=== PATIENT | female | born 1955 | race African-American/Black ===

== ENCOUNTER 2018-06-27 15:45 | Inpatient (IN) | payer MEDICARE ==
[~2018-06-27 15:45] MED LIST: ISOVUE-370 76%-LOCM 1 ML ONE
[2018-06-27] MEDS ORDERED: Docusate 100 MG CAP PO PRN (16:58)
[2018-06-27] MEDS ORDERED: Ondansetron PF 4 MG/2 ML Vial IVP PRN (16:58)
[2018-06-27] MEDS ORDERED: CCU Electrolyte Replacement 1 EACH IVPB ONE (16:58)
[2018-06-27] MEDS ORDERED: HumaLOG 300 UNITS/3 ML VIAL SC PRN (16:58)
--- NOTE | 2018-06-27 17:26 | CT ---
CONTRAST ENHANCED CTA BRAIN 06/27/18 HISTORY: Patient with hypertension, incidentally noted subdural hematoma, headache. Contrast enhanced CTA brain performed. 2D and 3D reconstructed images performed on an independent 3D workstation. Comparison made to a noncontrast enhanced CT brain from earlier in the day on 06/27/18. Again, the subdural hematoma is seen. Midline shift is unchanged measuring approximately 5.4 mm. No i ncreasing amounts of hemorrhage seen. CTA images brain with 2D and 3D reconstructed images demonstrate an incidentally noted 2.7 mm anterio r communicating artery aneurysm. No definite evidence of associated subarachnoid hemorrhage seen. IMPRESSION: 1. Stable subdural hematoma. 2. 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 Findings called to [facility]IG[facility] for neurosurgery at 5:16 p.m. on 06/27/18. In addition, call was al so made to Dr. Martinez at 5:09 p.m. on 06/27/18. Code CR POS: [facility]
[2018-06-27] MEDS ORDERED: Potassium Chloride 40 MEQ in Sodium Chloride 0.9% 250 ML 250 ML IVPB PRN (17:56)
[2018-06-27] MEDS ORDERED: Potassium Phosphate 12 MMOL in Sodium Chloride 0.9% 250 ML 250 ML IV PRN (17:56)
[2018-06-27] MEDS ORDERED: Potassium Chloride 40 MEQ in Premix Bag 1 BAG IVPB PRN (17:56)
[2018-06-27] MEDS ORDERED: Magnesium 2 GM/50 ML 2 GM in Premix Bag 1 BAG IVPB PRN (17:56)
[2018-06-27] MEDS ORDERED: Magnesium Oxide 400 MG TAB PO PRN ×2 (17:56)
[2018-06-27] MEDS ORDERED: Potassium Phosphate 15 MMOL in Sodium Chloride 0.9% 250 ML 250 ML IV PRN (17:56)
[2018-06-27] MEDS ORDERED: Potassium Chloride 20 MEQ TAB PO PRN (17:56)
[2018-06-27] MEDS ORDERED: CCU ELECTROLYTE REPLACEMENT PROTOCOL FS PRN (17:56)
[2018-06-27] MEDS ORDERED: Potassium Phosphate 9 MMOL in Sodium Chloride 0.9% 100 ML IVPB PRN (17:56)
--- NOTE | 2018-06-27 17:59 | HP ---
HISTORY OF PRESENT ILLNESS: Ms. Small is a very pleasant 62-year-old woman, who was in her normal state of health 72 hours ago and then developed what she describes as one of the most severe headaches that she has had in her life, that resolved on its own without treatment, and then again this morning, she woke up with somewhat significant headache, that resolved again. She has a history of sinus problems and felt that she was likely related to this and went to [facility] to sisal picker some medications to help treat her symptoms. While she was there, she figured she would check her blood pressure at the health machine located in the pharmacy and found that her blood pressure was roughly 230/140, which prompted her to come to the emergency department in [place]. CT scan was performed, which showed a right-sided subdural hematoma of subacute nature spanning the entire right cerebral convexity with mass effect measuring roughly 4.5 mm of midline shift, right to left. She denies any history of trauma. Denies any blood thinners other than 325 mg aspirin daily, which she states she takes as a preventive measure for cardiac events, but she has no history of these. She does have a history of hypertension and takes three medications for such. She is also diabetic. She states that she has no headache at present and otherwise feels well. Her systolic pressures here in the department are at 155/68, which I think could actually be a little lower for the purposes of controlling any continued bleeding. PAST MEDICAL HISTORY: Significant for hypertension, anxiety, diabetes, and hyperlipidemia. CURRENT MEDICATIONS: 1. Aspirin. 2. Hydralazine. 3. Xanax. 4. Metformin. 5. Metoprolol. 6. Amlodipine. 7. Pravastatin. 8. Losartan. PAST SURGICAL HISTORY: Chest abscess, appendectomy, and hysterectomy. ALLERGIES: NO KNOWN DRUG ALLERGIES. PHYSICAL EXAMINATION: GENERAL: The patient is alert and oriented x4. HEENT: Pupils are equal, round, and reactive to light. Extraocular movements are intact. Head is atraumatic and normocephalic. NEUROLOGIC: She has no deficits on motor examination of the bilateral upper and bilateral lower extremities. There is no numbness or sensory disturbance that I can discern at any location. ASSESSMENT: Subacute subdural hematoma and hypertensive emergency. PLAN: At this time, we will need to obtain a CTA in the emergency department to better evaluate any possible causes for her bleed as this is rather atypical for subdural hematoma. We will hold all blood thinning medications and admitted to the ICU with every one hour neuro checks. Plan will likely be nonsurgical as long as her exam remains normal. We will obtain a repeat CT scan this evening at 10 o'clock to evaluate any evolution of the hemorrhage. Target blood pressure will be 140 or less. I have discussed this plan with Dr. Benson and we will re-evaluate in the morning. Job ID: [id number]
[2018-06-27] MEDS: Sodium Chloride 0.9% 1,000 ML IV SCH (20:17)
[2018-06-27 20:31] VITALS: BMI 23.9
[2018-06-27] MEDS: Labetalol HCl 100 MG/20 ML VIAL SLOW IVP PRN (20:44)
--- NOTE | 2018-06-27 23:01 | CT ---
CT BRAIN 06/27/18 Comparison made to a previous exam from earlier in the day on 06/27/18. CT images of the brain demonstrates extensive subdural hematoma seen in the right and parafalcine reg ions. Smaller left frontal subdural hematoma is also present. Bilateral peritentorial subdural hemato ma is also present. Midline shift is not significantly changed since the previous exam. The extent of the subdural hemorrhage has not significantly changed. Mild right to left midline shift is again see n. This measures approximately 3.6 mm. IMPRESSION: Stable right sided and smaller left subdural hematoma with parafalcine and peritentorial subdural co llection is also seen. POS: [facility]
[2018-06-28] MEDS: hydrALAZINE 20 MG/ML VIAL SLOW IVP PRN ×5 (00:27→22:28)
[2018-06-28] MEDS ORDERED: niCARdipine HCl 25 MG in Sodium Chloride 0.9% 250 ML 240 ML IVPB SCH (00:30)
[2018-06-28] MEDS: Acetaminophen 325 MG TAB PO PRN ×2 (00:32→07:36)
[2018-06-28 05:19] LABS: #Basophils 0.1 thou/uL (0.0-0.2); #Eosinphils 0.1 thou/uL (0.0-0.7); #Monocytes 0.5 thou/uL (0.11-0.59); #Neutrophils 3.3 thou/uL (1.40-6.50); %Basophils 1.1 % (0.0-1.0); %Eosinophils 1.7 % (0.0-10.0); %Lymphocytes 33.1 % (21.0-51.0); %Monocytes 8.1 % (0.0-10.0); %Neutrophils 56.1 % (42.0-75.0); Hemoglobin 11.7 g/dL (12.0-16.0); Mean Corpuscular HGB CONC 32.8 g/dL (32.0-36.0); Mean Corpuscular Hemoglobin 31.1 pg (27.0-31.0); Mean Platelet Volume 8.4 fL (7.4-10.4); Platelet Count 231 thou/uL (130-400); RBC Distribution Width 14.1 % (11.5-14.5); Red Blood Cell (RBC) Count 3.77 mill/uL (4.20-5.40); White Blood Cell (WBC) Count 5.9 thou/uL (4.8-10.8)
[2018-06-28 05:25] LABS: Anion Gap 10 mmol/L (10-20); BUN (Urea Nitrogen) 13 mg/dL (9.8-20.1); Calc. Creatinine Clearance 62 mL/min (70-130); Calcium 9.3 mg/dL (7.8-10.44); Carbon Dioxide 27 mmol/L (23-31); Chloride 109 mmol/L (98-107); Estimated GFR-MDRD 69; Glucose 90 mg/dL (80-115); Potassium 3.8 mmol/L (3.5-5.1); Sodium 142 mmol/L (136-145)
[2018-06-28] MEDS: Labetalol HCl 100 MG/20 ML VIAL SLOW IVP PRN (06:04)
[2018-06-28] MEDS: Amlodipine 10 MG TAB PO SCH (07:36)
[2018-06-28] MEDS: metFORMIN 500 MG TAB PO SCH ×2 (08:37→17:39)
[2018-06-28] MEDS ORDERED: Losartan 25 MG TAB PO SCH ×2 (09:00→12:45)
[2018-06-28] MEDS ORDERED: hydrALAZINE 25 MG TAB PO SCH ×2 (09:00→12:45)
--- NOTE | 2018-06-28 10:03 | PRG ---
DATE OF SERVICE: 06/28/2018 SUBJECTIVE: Ms. Small is admitted last night for subdural hematoma. Repeat CT scan revealed a stable subdural hematoma with a stable midline shift to the right cerebral convexity and shift is [id number]. Neurologically, she is stable. She does have a minor headache this morning, but overall is very well appearing. She is anxious to get home. I will discuss with Dr. Benson about plan and minimally can transfer her to the floor, see how she mobilizes, and if doing well, can possibly send home earlier this afternoon. Still do not have reasonable explanation for how this hemorrhage occurred, but will follow likely in 2 to 3 weeks in the outpatient setting if she is able to be discharged home. I did discuss with her the finding of incidental aneurysm of anterior communicating artery measuring 3 mm. Again, I do not think that this is impactful in terms of hemorrhage. Job ID: [id number]
--- NOTE | 2018-06-28 10:44 | PDOC.PN ---
- Subjective Encounter Start Date: 06/28/18 Encounter Start Time: 09:40 consulted to BP management, pt has not complaints, she has no headache - Objective MAR Reviewed: Yes Vital Signs & Weight: Vital Signs (12 hours) Temp Pulse BP 06/28/18 07:00 98.6 F 06/28/18 06:04 69 162/87 H 06/28/18 05:07 74 158/77 H 06/28/18 05:00 98.5 F 06/28/18 00:27 74 179/86 H 06/28/18 00:00 97.8 F Weight Weight 154 lb 8.705 oz Most Recent Monitor Data Heart Rate from ECG 78 NIBP 150/72 NIBP BP-Mean 98 Respiration from ECG 21 SpO2 98 I&O: 06/27/18 06/28/18 06/29/18 06:59 06:59 06:59 Intake Total 1060 960 Output Total 1200 Balance -140 960 Result Diagrams: 06/28/18 04:10 06/28/18 04:10 Additional Labs: Accuchecks 06/27/18 19:56 POC Glucose 120 H Radiology Reviewed by me: Yes (CT brain reviewed) EKG Reviewed by me: Yes (NSR) Phys Exam - Physical Examination Constitutional: NAD HEENT: PERRLA, moist MMs, sclera anicteric Neck: no JVD, supple she has chronic lump in her right side of sbumandibular region Respiratory: no wheezing, no rales, no rhonchi Cardiovascular: RRR, no significant murmur, no rub Gastrointestinal: soft, non-tender, no distention, positive bowel sounds Musculoskeletal: no edema, pulses present Neurological: non-focal, normal sensation, moves all 4 limbs Lymphatic: no nodes Psychiatric: normal affect, A&O x 3 Skin: no rash, normal turgor Dx/Plan (1) Subdural hematoma Code(s): S06.5X9A - TRAUM SUBDR HEM W LOC OF UNSP DURATION, INIT Status: Acute (2) Anemia, normocytic normochromic Code(s): D64.9 - ANEMIA, UNSPECIFIED Status: Chronic (3) Anxiety and depression Code(s): F41.9 - ANXIETY DISORDER, UNSPECIFIED; F32.9 - MAJOR DEPRESSIVE DISORDER, SINGLE EPISODE, UNSPECIFIED Status: Chronic (4) Diabetes type 2, controlled Code(s): E11.9 - TYPE 2 DIABETES MELLITUS WITHOUT COMPLICATIONS Status: Chronic (5) Dyslipidemia Code(s): E78.5 - HYPERLIPIDEMIA, UNSPECIFIED Status: Chronic (6) Hypertension Code(s): I10 - ESSENTIAL (PRIMARY) HYPERTENSION Status: Chronic (7) Aneurysm of anterior communicating artery Code(s): I67.1 - CEREBRAL ANEURYSM, NONRUPTURED Status: Chronic - Plan cont current plan of care * for better blood pressure control, I will increase her home meds losartan to 50 mg po daily * will add HCTZ 25 mg po daily * continue her home meds amlodipine 10 mg and hydralazin 25 mg po TID * if pt is planned for discharge she needs to follow up with PCP for more adjustment * discharge will defer to primary team, pt prefers to go home * medication reviewed as below * symptomatic treatment. * if pt stays, will continue to manage her BP Review of Systems - Review of Systems Eyes: negative: Pain, Vision Change, Conjunctivae Inflammation, Eyelid Inflammation, Redness, Other ENT: negative: Ear Pain, Ear Discharge, Nose Pain, Nose Discharge, Nose Congestion, Mouth Pain, Mouth Swelling, Throat Pain, Throat Swelling, Other Respiratory: negative: Cough, Dry, Shortness of Breath, Hemoptysis, SOB with Excertion, Pleuritic Pain, Sputum, Wheezing Cardiovascular: negative: chest pain, palpitations, orthopnea, paroxysmal nocturnal dyspnea, edema, light headedness, other Gastrointestinal: negative: Nausea, Vomiting, Abdominal Pain, Diarrhea, Constipation, Melena, Hematochezia, Other Genitourinary: negative: Dysuria, Frequency, Incontinence, Hematuria, Retention , Other Musculoskeletal: negative: Neck Pain, Shoulder Pain, Arm Pain, Back Pain, Hand Pain, Leg Pain, Foot Pain, Other Skin: negative: Rash, Lesions, Everett, Bruising, Other Neurological: negative: Weakness, Numbness, Incoordination, Change in Speech, Confusion, Seizures, Other - Medications/Allergies Allergies/Adverse Reactions: Allergies Allergy/AdvReac Type Severity Reaction Status Date / Time No Known Allergies Allergy Verified 12/03/14 17:19 Medications: Current Medications Acetaminophen (Tylenol) 650 mg PO Q6H PRN PRN Reason: Fever > 101 or Headache Last Admin: 06/28/18 07:36 Dose: 650 mg Amlodipine Besylate (Norvasc) 10 mg PO DAILY [facility] Last Admin: 06/28/18 07:36 Dose: 10 mg Atorvastatin Calcium (Lipitor) 10 mg PO HS DARSHAN Docusate Sodium (Colace) 100 mg PO BIDPRN PRN PRN Reason: Constipation Hydralazine HCl (Apresoline) 10 mg SLOW IVP Q1H PRN PRN Reason: SBP >= 180 Last Admin: 06/28/18 05:07 Dose: 10 mg Hydralazine HCl (Apresoline) 25 mg PO TID [facility] Last Admin: 06/28/18 07:36 Dose: 25 mg Sodium Chloride (Normal Saline 0.9%) 1,000 mls @ 70 mls/hr IV .[id number] PENDING [facility] TO [facility] Last Admin: 06/27/18 20:17 Dose: 1,000 mls Potassium Chloride 40 meq/ (Sodium Chloride) 270 mls @ 135 mls/hr IVPB ASDIR PRN PRN Reason: FOR SERUM K+ 2.5 - 3.5 Potassium Chloride 40 meq/ (Device) 100 mls @ 50 mls/hr IVPB ASDIR PRN PRN Reason: FOR SERUM K+ 2.5 - 3.5 Magnesium Sulfate 1 gm/ Sodium (Chloride) 102 mls @ 102 mls/hr IV PRN PRN PRN Reason: MAG LEVEL 1.4 - 2.0 Magnesium Sulfate 2 gm/ Device 50 mls @ 50 mls/hr IVPB ASDIR PRN PRN Reason: MAGNESIUM < 1.4 Potassium Phosphate 9 mmol/ (Sodium Chloride) 103 mls @ 25.75 mls/hr IVPB ASDIR PRN PRN Reason: Phosphate 1.0-1.8 Potassium Phosphate 12 mmol/ (Sodium Chloride) 254 mls @ 63.5 mls/hr IV ASDIR PRN PRN Reason: Serum phosphate 0.5-0.9 Potassium Phosphate 15 mmol/ (Sodium Chloride) 255 mls @ 63.75 mls/hr IV ASDIR PRN PRN Reason: Serum Phos < 0.5 Nicardipine HCl 25 mg/ Sodium (Chloride) 250 mls @ 0 mls/hr IVPB INF DARSHAN; Protocol Insulin Human Lispro (Humalog) 0 units SC .MODERATE SLIDING SC PRN PRN Reason: Moderate Correctional Scale Labetalol HCl (Normodyne) 10 mg SLOW IVP Q4H PRN PRN Reason: SBP > 140 or DBP > 90 Last Admin: 06/28/18 06:04 Dose: 10 mg Losartan Potassium (Cozaar) 25 mg PO DAILY [facility] Last Admin: 06/28/18 07:36 Dose: 25 mg Magnesium Oxide (Magnesium Oxide) 400 mg PO BIDPRN PRN PRN Reason: FOR SERUM MAG 1.4 - 2.0 Magnesium Oxide (Magnesium Oxide) 800 mg PO PRN PRN PRN Reason: FOR SERUM MAG < 1.4 Metformin HCl (Glucophage) 1,000 mg PO BID-WM PEND[facility] Last Admin: 06/28/18 08:37 Dose: 1,000 mg Metoprolol Succinate (Toprol Xl) 50 mg PO DAILY [facility] Last Admin: 06/28/18 07:36 Dose: 50 mg Miscellaneous Medication (Phos-Nak) 1 pkt PO TIDPRN PRN PRN Reason: FOR PHOS LEVEL 1.0 - 1.8 Miscellaneous Medication (Phos-Nak) 2 pkt PO TIDPRN PRN PRN Reason: FOR PHOS LEVEL 0.5 - 1.0 Ccu Electrolyte (Replacement Protocol) 0 each FS PRN PRN PRN Reason: FOR ELECTROLYTE REPLACEMENT Ondansetron HCl (Zofran) 4 mg IVP Q6H PRN PRN Reason: Nausea/Vomiting Potassium Chloride (K-Dur) 40 meq PO ASDIR PRN PRN Reason: FOR SERUM K+ 2.5 - 3.5 Potassium Chloride (Klor-Con) 40 meq PER TUBE ASDIR PRN PRN Reason: FOR SERUM K+ 2.5-3.5 Sodium Chloride (Flush - Normal Saline) 10 ml IVF PRN PRN PRN Reason: Saline Flush History of Present Illnes - History of Present Illness Reason for Visit: admitted for subdural hematoma, consulted for hypertension management - Past Medical History Cardiac: HTN, Hyperlipidemia Endocrine: Diabetes - Past Surgical History Past Surgical History: Appendectomy - Past Family History Family History: None - Past Social History Smoke: No Alcohol: None Drugs: None Lives: With Family
[2018-06-28] MEDS ORDERED: hydrALAZINE 20 MG/ML VIAL SLOW IVP SCH (12:45)
[2018-06-28] MEDS: Sodium Chloride 0.9% 1,000 ML IV SCH (13:36)
[2018-06-28] MEDS: hydrALAZINE 25 MG TAB PO SCH ×2 (15:37→20:27)
[2018-06-28] MEDS: Atorvastatin Calcium 10 MG TAB PO SCH (20:27)
--- NOTE | 2018-06-29 00:07 | CON ---
DATE OF CONSULTATION: 06/28/2018 HISTORY OF PRESENT ILLNESS: Geovanny is a pleasant 62-year-old female, very quickly tells me she wants to go home. She actually does not look acutely ill. She is seen in the Critical Care Unit. Apparently, she presented with a horrible headache. She was extremely hypertensive, came to the emergency room. She had a right- sided subdural that was subacute. She did have midline shift. She subsequently was admitted. PAST MEDICAL HISTORY: Remarkable for hypertension, diabetes, anxiety, and lipid disorder. MEDICATIONS: Prior to admission, 1. She is on aspirin. 2. Hydralazine. 3. Xanax. 4. Metformin. 5. Metoprolol. 6. Norvasc. 7. Pravastatin. 8. Losartan. PAST SURGICAL HISTORY: Remarkable for appendectomy, hysterectomy. She had an admission here in 2014 for chest discomfort and coronary artery disease was ruled out. FAMILY HISTORY: Negative for lung disease in early age. SOCIAL HISTORY: Not obtained. REVIEW OF SYSTEMS: A 10-point review of systems completed, otherwise negative. PHYSICAL EXAMINATION: GENERAL: She is in absolutely no distress. VITAL SIGNS: She is afebrile, heart rate is in 60s, respiratory rate is 20, blood pressure is 178/68. She is 99% on room air. HEENT: Pupils are equal. Sclerae are anicteric. Extraocular movements are full. NECK: Supple. LUNGS: Clear. HEART: Regular rhythm. S1 and S2 are normal. ABDOMEN: Soft and nontender. EXTREMITIES: Without clubbing, cyanosis, or edema. IMPRESSION: Subdural hematoma, subacute. This will continue to be followed closely by Neurosurgery. She does have an anterior communicating artery aneurysm, but this is not felt to be the cause of the hemorrhage. She will need to continue to be monitored from a blood pressure standpoint. She is in my opinion stable to move out of critical care unit. This is a 70 minute consult, with greater than 50% of time spent on unit coordinating care. Job ID: [id number] MTDD
[2018-06-29] MEDS: hydrALAZINE 20 MG/ML VIAL SLOW IVP PRN ×3 (03:04→17:39)
[2018-06-29] MEDS ORDERED: Carvedilol 6.25 MG TAB PO SCH (08:00)
[2018-06-29] MEDS: metFORMIN 500 MG TAB PO SCH ×2 (08:19→16:32)
[2018-06-29] MEDS: Hydrochlorothiazide 25 MG TAB PO SCH (08:20)
[2018-06-29] MEDS: Amlodipine 10 MG TAB PO SCH (08:20)
[2018-06-29] MEDS: Losartan 25 MG TAB PO SCH (08:20)
[2018-06-29] MEDS: hydrALAZINE 25 MG TAB PO SCH ×3 (08:20→22:06)
[2018-06-29] MEDS ORDERED: Bisacodyl 5 MG TAB PO PRN (09:00)
[2018-06-29] MEDS ORDERED: Loperamide HCl 2 MG CAP PO PRN (09:00)
[2018-06-29] MEDS ORDERED: Cepastat Lozenges 1 LOZ PO PRN (09:00)
[2018-06-29] MEDS ORDERED: Eucerin (Mineral Oil/Petrolatum,White) 30 gm Jar TOP PRN (09:00)
[2018-06-29] MEDS ORDERED: Ondansetron ODT 4 MG TAB PO PRN (09:00)
[2018-06-29] MEDS ORDERED: Diabetic Tussin 200 MG/10 ML UDCUP PO PRN (09:00)
[2018-06-29] MEDS ORDERED: Zolpidem Tartrate 5 MG TAB PO PRN (09:00)
[2018-06-29] MEDS ORDERED: Senokot S 8.6-50 MG TAB PO PRN (09:00)
[2018-06-29] MEDS ORDERED: Artificial Tears 18 DROP/0.9 ML EA EYE PRN (09:00)
[2018-06-29] MEDS ORDERED: Sodium Chloride 0.65% Nasal 44 ML BOT EA NARE PRN (09:00)
[2018-06-29] MEDS: Loratadine 10 MG TAB PO PRN (09:30)
--- NOTE | 2018-06-29 09:55 | PDOC.PN ---
- Subjective Encounter Start Date: 06/29/18 Encounter Start Time: 09:00 -: old records requested/rev pt had transient CHB on tele monitor, pt is asymptomatic, her BP still high - Objective MAR Reviewed: Yes Vital Signs & Weight: Vital Signs (12 hours) Temp Pulse Resp BP BP Pulse Ox 06/29/18 08:20 67 148/72 H 100 06/29/18 08:19 148/72 H 06/29/18 07:52 98 F 67 20 148/72 H 100 06/29/18 05:36 176/80 H 06/29/18 04:00 98 F 84 16 100 06/29/18 03:04 78 06/29/18 03:03 170/86 H 06/29/18 00:53 78 168/74 H 06/29/18 00:00 98.1 F 84 16 185/81 H 97 06/28/18 22:38 76 188/90 H Weight Weight 144 lb Most Recent Monitor Data Heart Rate from ECG 86 NIBP 173/99 NIBP BP-Mean 123 Respiration from ECG 16 SpO2 100 I&O: 06/28/18 06/29/18 06/30/18 06:59 06:59 06:59 Intake Total 1060 1656 Output Total 1200 1000 Balance -140 656 Result Diagrams: 06/28/18 04:10 06/28/18 04:10 Additional Labs: Accuchecks 06/29/18 06/28/18 06/28/18 05:18 21:02 16:51 POC Glucose 96 98 91 06/28/18 11:32 POC Glucose 84 EKG Reviewed by me: Yes (transient CHB noted) Phys Exam - Physical Examination Constitutional: NAD HEENT: PERRLA, moist MMs, sclera anicteric Neck: no JVD, supple Respiratory: no wheezing, no rales, no rhonchi Cardiovascular: RRR, no significant murmur, no rub Gastrointestinal: soft, non-tender, no distention, positive bowel sounds Musculoskeletal: no edema, pulses present Neurological: non-focal, normal sensation, moves all 4 limbs Lymphatic: no nodes Psychiatric: normal affect, A&O x 3 Skin: no rash, normal turgor Dx/Plan (1) Subdural hematoma Code(s): S06.5X9A - TRAUM SUBDR HEM W LOC OF UNSP DURATION, INIT Status: Acute (2) Anemia, normocytic normochromic Code(s): D64.9 - ANEMIA, UNSPECIFIED Status: Chronic (3) Anxiety and depression Code(s): F41.9 - ANXIETY DISORDER, UNSPECIFIED; F32.9 - MAJOR DEPRESSIVE DISORDER, SINGLE EPISODE, UNSPECIFIED Status: Chronic (4) Diabetes type 2, controlled Code(s): E11.9 - TYPE 2 DIABETES MELLITUS WITHOUT COMPLICATIONS Status: Chronic (5) Dyslipidemia Code(s): E78.5 - HYPERLIPIDEMIA, UNSPECIFIED Status: Chronic (6) Hypertension Code(s): I10 - ESSENTIAL (PRIMARY) HYPERTENSION Status: Chronic (7) Aneurysm of anterior communicating artery Code(s): I67.1 - CEREBRAL ANEURYSM, NONRUPTURED Status: Chronic (8) CHB (complete heart block) Code(s): I44.2 - ATRIOVENTRICULAR BLOCK, COMPLETE Status: Acute Comment: transient, asymptomatic, may be due to BB - Plan cont current plan of care * will add HCTZ 25 mg po daily * will DC all BB due to episode of transient CHB * will get opinion from cardiology * medication reviewed as below * symptomatic treatment * monitor today. * currently on hydralalzine, amlodipine, HCTZ and losartan Review of Systems - Review of Systems ENT: negative: Ear Pain, Ear Discharge, Nose Pain, Nose Discharge, Nose Congestion, Mouth Pain, Mouth Swelling, Throat Pain, Throat Swelling, Other Respiratory: negative: Cough, Dry, Shortness of Breath, Hemoptysis, SOB with Excertion, Pleuritic Pain, Sputum, Wheezing Cardiovascular: negative: chest pain, palpitations, orthopnea, paroxysmal nocturnal dyspnea, edema, light headedness, other Gastrointestinal: negative: Nausea, Vomiting, Abdominal Pain, Diarrhea, Constipation, Melena, Hematochezia, Other Genitourinary: negative: Dysuria, Frequency, Incontinence, Hematuria, Retention , Other Musculoskeletal: negative: Neck Pain, Shoulder Pain, Arm Pain, Back Pain, Hand Pain, Leg Pain, Foot Pain, Other Skin: negative: Rash, Lesions, Everett, Bruising, Other - Medications/Allergies Allergies/Adverse Reactions: Allergies Allergy/AdvReac Type Severity Reaction Status Date / Time No Known Allergies Allergy Verified 12/03/14 17:19 Medications: Current Medications Acetaminophen (Tylenol) 650 mg PO Q6H PRN PRN Reason: Fever > 101 or Headache Last Admin: 06/28/18 07:36 Dose: 650 mg Hydrocodone Bitart/Acetaminophen (Chester 5/325) 1 tab PO Q4H PRN PRN Reason: Moderate Pain (4-6) Amlodipine Besylate (Norvasc) 10 mg PO DAILY [facility] Last Admin: 06/29/18 08:20 Dose: 10 mg Artificial Tears (Tears Naturale) 2 drop EA EYE PRN PRN PRN Reason: Dry Eyes Atorvastatin Calcium (Lipitor) 10 mg PO [facility] Last Admin: 06/28/18 20:27 Dose: 10 mg Bisacodyl (Dulcolax) 10 mg PO DAILYPRN PRN PRN Reason: Constipation Docusate Sodium (Colace) 100 mg PO BIDPRN PRN PRN Reason: Constipation Fluticasone Propionate (Flonase Nasal Elmer) 0 gm NASAL DAILY [facility] Last Admin: 06/29/18 09:31 Dose: 2 spray Guaifenesin (Robitussin Sf) 200 mg PO Q4H PRN PRN Reason: Cough Hydralazine HCl (Apresoline) 50 mg PO TID [facility] Last Admin: 06/29/18 08:20 Dose: 50 mg Hydralazine HCl (Apresoline) 10 mg SLOW IVP Q2H PRN PRN Reason: SBP GREATER THAN 160 Hydrochlorothiazide (Hydrochlorothiazide) 25 mg PO DAILY [facility] Last Admin: 06/29/18 08:20 Dose: 25 mg Insulin Human Lispro (Humalog) 0 units SC .MODERATE SLIDING SC PRN PRN Reason: Moderate Correctional Scale Loperamide HCl (Imodium) 2 mg PO PRN PRN PRN Reason: Diarrhea/Loose Stools Loratadine (Claritin) 10 mg PO DAILYPRN PRN PRN Reason: Sinus Symptoms Last Admin: 06/29/18 09:30 Dose: 10 mg Losartan Potassium (Cozaar) 50 mg PO DAILY [facility] Last Admin: 06/29/18 08:20 Dose: 50 mg Metformin HCl (Glucophage) 1,000 mg PO BID-[facility] Last Admin: 06/29/18 08:19 Dose: 1,000 mg Mineral Oil/White Petrolatum (Eucerin Cream) 0 gm TOP BIDPRN PRN PRN Reason: Dry Skin Ondansetron HCl (Zofran) 4 mg IVP Q6H PRN PRN Reason: Nausea/Vomiting Ondansetron HCl (Zofran Odt) 4 mg PO Q6H PRN PRN Reason: Nausea/Vomiting Senna/Docusate Sodium (Senokot S) 2 tab PO BID PRN PRN Reason: Constipation Sodium Chloride (Flush - Normal Saline) 10 ml IVF PRN PRN PRN Reason: Saline Flush Sodium Chloride (Hector Nasal Elmer 0.65%) 0 ml EA NARE QIDPRN PRN PRN Reason: Nasal Congestion Throat Lozenges (Cepastat Lozenges) 1 anthony PO Q2H PRN PRN Reason: Sore Throat Zolpidem Tartrate (Ambien) 5 mg PO HSPRN PRN PRN Reason: Insomnia
--- NOTE | 2018-06-29 10:39 | PRG ---
DATE OF SERVICE: 06/28/2018 SUBJECTIVE: Ms. Small remains in the ICU with a right-sided cerebral convexity subdural hematoma with a mild degree of midline shift. She does report minor headache and has had one for the last several days. She is otherwise neurologically intact. She is quite eager to go home. We did perform a CT angiogram which shows small ACOM region aneurysm, which I do not believe is likely a culprit in her hemorrhage. We will transition her from the unit to the floor and start to mobilize her. She has had fairly substantial blood pressure lability issues. Our hospital's colleagues are working to address her blood pressure. We will relax her systolic parameters to 160. I do anticipate she will be able to discharge home soon once she has been mobilizing and once she has adequate blood pressure control. Job ID: [id number]
[2018-06-29] MEDS: Acetaminophen 325 MG TAB PO PRN (17:47)
[2018-06-29] MEDS: HYDROcodone/Acetaminophen 5/325 mg Tablet PO PRN (18:44)
[2018-06-29] MEDS: Atorvastatin Calcium 10 MG TAB PO SCH (22:07)
[2018-06-30] MEDS: hydrALAZINE 20 MG/ML VIAL SLOW IVP PRN (05:30)
[2018-06-30] MEDS: HYDROcodone/Acetaminophen 5/325 mg Tablet PO PRN (06:24)
[2018-06-30] MEDS: Losartan 25 MG TAB PO SCH (08:28)
[2018-06-30] MEDS: hydrALAZINE 25 MG TAB PO SCH ×2 (08:28→15:43)
[2018-06-30] MEDS: Hydrochlorothiazide 25 MG TAB PO SCH (08:28)
[2018-06-30] MEDS: Amlodipine 10 MG TAB PO SCH (08:29)
[2018-06-30] MEDS: metFORMIN 500 MG TAB PO SCH ×2 (08:29→17:12)
[2018-06-30] MEDS ORDERED: Fluticasone Propionate Nasal Spray 16 gm Bottle NASAL SCH (09:00)
--- NOTE | 2018-06-30 11:00 | PDOC.PN ---
- Subjective Encounter Start Date: 06/30/18 Encounter Start Time: 07:50 Patient seen and examined. No new complaints. No overnight events - Objective MAR Reviewed: Yes Vital Signs & Weight: Vital Signs (12 hours) Temp Pulse Resp BP BP Pulse Ox 06/30/18 08:29 57 L 152/78 H 06/30/18 08:28 57 L 152/78 H 06/30/18 08:18 152/78 H 06/30/18 07:51 98.2 F 57 L 16 99 06/30/18 05:00 180/76 H 06/30/18 04:56 98.2 F 61 16 98 06/30/18 00:55 155/78 H 06/29/18 23:44 98.3 F 70 16 97 Weight Weight 143 lb 1.6 oz Most Recent Monitor Data Heart Rate from ECG 86 NIBP 173/99 NIBP BP-Mean 123 Respiration from ECG 16 SpO2 100 I&O: 06/29/18 06/30/18 07/01/18 06:59 06:59 06:59 Intake Total 1656 Output Total 1000 Balance 656 Result Diagrams: 06/28/18 04:10 06/28/18 04:10 Additional Labs: Accuchecks 06/30/18 06/29/18 06/29/18 05:28 20:45 16:40 POC Glucose 100 126 H 111 H 06/29/18 10:39 POC Glucose 100 EKG Reviewed by me: Yes (nsr) Phys Exam - Physical Examination Constitutional: NAD HEENT: PERRLA, moist MMs, sclera anicteric Neck: no JVD, supple Respiratory: no wheezing, no rales, no rhonchi Cardiovascular: RRR, no significant murmur, no rub Gastrointestinal: soft, non-tender, no distention, positive bowel sounds Musculoskeletal: no edema, pulses present Neurological: non-focal, normal sensation Lymphatic: no nodes Psychiatric: normal affect, A&O x 3 Skin: no rash, normal turgor Dx/Plan (1) Subdural hematoma Code(s): S06.5X9A - TRAUM SUBDR HEM W LOC OF UNSP DURATION, INIT Status: Acute (2) Anemia, normocytic normochromic Code(s): D64.9 - ANEMIA, UNSPECIFIED Status: Chronic (3) Anxiety and depression Code(s): F41.9 - ANXIETY DISORDER, UNSPECIFIED; F32.9 - MAJOR DEPRESSIVE DISORDER, SINGLE EPISODE, UNSPECIFIED Status: Chronic (4) Diabetes type 2, controlled Code(s): E11.9 - TYPE 2 DIABETES MELLITUS WITHOUT COMPLICATIONS Status: Chronic (5) Dyslipidemia Code(s): E78.5 - HYPERLIPIDEMIA, UNSPECIFIED Status: Chronic (6) Hypertension Code(s): I10 - ESSENTIAL (PRIMARY) HYPERTENSION Status: Chronic (7) Aneurysm of anterior communicating artery Code(s): I67.1 - CEREBRAL ANEURYSM, NONRUPTURED Status: Chronic (8) CHB (complete heart block) Code(s): I44.2 - ATRIOVENTRICULAR BLOCK, COMPLETE Status: Acute Comment: transient, asymptomatic, may be due to BB - Plan cont current plan of care * echo pending * cardiology evaluated * her BP is now at target range, * consider discharge after cardiology recommendation if no further plan * medication reviewed as below * symptomatic treatment. Review of Systems - Review of Systems ENT: negative: Ear Pain, Ear Discharge, Nose Pain, Nose Discharge, Nose Congestion, Mouth Pain, Mouth Swelling, Throat Pain, Throat Swelling, Other Respiratory: negative: Cough, Dry, Shortness of Breath, Hemoptysis, SOB with Excertion, Pleuritic Pain, Sputum, Wheezing Cardiovascular: negative: chest pain, palpitations, orthopnea, paroxysmal nocturnal dyspnea, edema, light headedness, other Gastrointestinal: negative: Nausea, Vomiting, Abdominal Pain, Diarrhea, Constipation, Melena, Hematochezia, Other Genitourinary: negative: Dysuria, Frequency, Incontinence, Hematuria, Retention , Other Musculoskeletal: negative: Neck Pain, Shoulder Pain, Arm Pain, Back Pain, Hand Pain, Leg Pain, Foot Pain, Other - Medications/Allergies Allergies/Adverse Reactions: Allergies Allergy/AdvReac Type Severity Reaction Status Date / Time No Known Allergies Allergy Verified 12/03/14 17:19 Medications: Current Medications Acetaminophen (Tylenol) 650 mg PO Q6H PRN PRN Reason: Fever > 101 or Headache Last Admin: 06/29/18 17:47 Dose: 650 mg Hydrocodone Bitart/Acetaminophen ([place] 5/325) 1 tab PO Q4H PRN PRN Reason: Moderate Pain (4-6) Last Admin: 06/30/18 06:24 Dose: 1 tab Amlodipine Besylate (Norvasc) 10 mg PO DAILY DARSHAN Last Admin: 06/30/18 08:29 Dose: 10 mg Artificial Tears (Tears Naturale) 2 drop EA EYE PRN PRN PRN Reason: Dry Eyes Atorvastatin Calcium (Lipitor) 10 mg PO HS ON LICENSE OF [facility] Last Admin: 06/29/18 22:07 Dose: 10 mg Bisacodyl (Dulcolax) 10 mg PO DAILYPRN PRN PRN Reason: Constipation Docusate Sodium (Colace) 100 mg PO BIDPRN PRN PRN Reason: Constipation Fluticasone Propionate (Flonase Nasal [place]) 0 gm NASAL DAILY ON LICENSE OF [facility] Last Admin: 06/29/18 09:31 Dose: 2 spray Guaifenesin (Robitussin Sf) 200 mg PO Q4H PRN PRN Reason: Cough Hydralazine HCl (Apresoline) 50 mg PO TID ON LICENSE OF [facility] Last Admin: 06/30/18 08:28 Dose: 50 mg Hydralazine HCl (Apresoline) 10 mg SLOW IVP Q2H PRN PRN Reason: SBP GREATER THAN 160 Last Admin: 06/30/18 05:30 Dose: 10 mg Hydrochlorothiazide (Hydrochlorothiazide) 25 mg PO DAILY ON LICENSE OF [facility] Last Admin: 06/30/18 08:28 Dose: 25 mg Insulin Human Lispro (Humalog) 0 units SC .MODERATE SLIDING SC PRN PRN Reason: Moderate Correctional Scale Loperamide HCl (Imodium) 2 mg PO PRN PRN PRN Reason: Diarrhea/Loose Stools Loratadine (Claritin) 10 mg PO DAILYPRN PRN PRN Reason: Sinus Symptoms Last Admin: 06/29/18 09:30 Dose: 10 mg Losartan Potassium (Cozaar) 50 mg PO DAILY ON LICENSE OF [facility] Last Admin: 06/30/18 08:28 Dose: 50 mg Metformin HCl (Glucophage) 1,000 mg PO BID-[facility] Last Admin: 06/30/18 08:29 Dose: 1,000 mg Mineral Oil/White Petrolatum (Eucerin Cream) 0 gm TOP BIDPRN PRN PRN Reason: Dry Skin Ondansetron HCl (Zofran) 4 mg IVP Q6H PRN PRN Reason: Nausea/Vomiting Ondansetron HCl (Zofran Odt) 4 mg PO Q6H PRN PRN Reason: Nausea/Vomiting Senna/Docusate Sodium (Senokot S) 2 tab PO BID PRN PRN Reason: Constipation Sodium Chloride (Flush - Normal Saline) 10 ml IVF PRN PRN PRN Reason: Saline Flush Sodium Chloride ([place] Nasal [place] 0.65%) 0 ml EA NARE QIDPRN PRN PRN Reason: Nasal Congestion Throat Lozenges (Cepastat Lozenges) 1 anthony PO Q2H PRN PRN Reason: Sore Throat Zolpidem Tartrate (Ambien) 5 mg PO HSPRN PRN PRN Reason: Insomnia
--- NOTE | 2018-06-30 12:22 | CON ---
DATE OF CONSULTATION: HISTORY OF PRESENT ILLNESS: This is a 62-year-old woman, who presents for evaluation of headache and was noted to have a slow heart rate. The patient was seen in November 2014 with chest pain. She underwent a cardiac evaluation including a stress test. She was found to have a mild decrease of ejection fraction 47% with no evidence of ischemia. The patient also was noted during this hospitalization to have first degree AV block. The dose of her Toprol was reduced. The patient presented to the hospital with headaches. She was found to have a subdural hematoma. On property assessment monitor, she was noted to have intermittent heart block. The patient has no history of syncope. She does not report being lightheaded. The patient was on metoprolol before she came in the hospital. The patient denies having any chest discomfort. The patient has multiple cardiac risk factors including hypertension, diabetes, dyslipidemia, tobacco abuse, and a strong family history of coronary artery disease. PAST MEDICAL HISTORY: 1. Hypertension. 2. Diabetes mellitus. 3. Dyslipidemia. 4. Anxiety disorder. PAST SURGICAL HISTORY: She has had an appendectomy, hysterectomy, skin surgery. SOCIAL HISTORY: The patient continues to abuse tobacco. MEDICATIONS ON ADMISSION: Included: 1. Pravachol 40 q.h.s. 2. Hydralazine 25 t.i.d. 3. Metoprolol succinate 50 mg daily. 4. Metformin 1000 b.i.d. 5. Losartan 25 daily. 6. Norvasc 10 daily. ALLERGIES: NO KNOWN DRUG ALLERGIES. FAMILY HISTORY: Strong family history of heart disease. REVIEW OF SYSTEMS: Ten-point systems otherwise unremarkable. PHYSICAL EXAMINATION: GENERAL: This is a well-developed woman, in no acute distress. VITAL SIGNS: Blood pressure 172/82. NECK: Showed no jugular venous distention. LUNGS: Clear to auscultation. HEART: Regular rate and rhythm. Normal S1 and S2 with a 2/6 systolic murmur. ABDOMEN: Nondistended. EXTREMITIES: Show no edema. VASCULAR: Radial pulses are 2+. LABORATORY RESULTS: White blood count 5.9, hemoglobin 11.7, hematocrit 35.8, platelets 231. Her sodium was 142, potassium 3.8, chloride 109, bicarb 27, BUN 13, creatinine is 0.98. Telemetry monitoring revealed normal sinus rhythm with a third-degree AV block and a junctional escape beat. IMPRESSION: 1. Heart block with ventricular escape beat. 2. Subdural hematoma. 3. History of mild decrease in left ventricular systolic function. 4. Hypertension. 5. Diabetes mellitus. 6. Dyslipidemia. 7. Tobacco abuse. PLAN: This patient had intermittent heart block with a junctional escape beat. She has been on Toprol, which she last received 2 days ago. This medication will be held and echocardiogram will be obtained. We will monitor the patient to see if she develops further evidence of heart block. Job ID: [id number]
--- NOTE | 2018-06-30 13:08 | PQF ---
CLINICAL DOCUMENTATION IMPROVEMENT CLARIFICATION FORM: ICD-10 Updated PLEASE DO AN ADDENDUM TO THE PROGRESS NOTE WITH ANY DOCUMENTATION UPDATES OR ADDITIONS AND CARRY THROUGH TO DC SUMMARY. THANK YOU. DATE: 06/30/18 ATTN : NIGEL MOORE Please exercise your independent, professional judgment in responding to the clarification form. Clinical indicators are provided on the bottom of this form for your review Please check appropriate box(s): [ ] Cerebral edema / Vasogenic edema [ x ] Compression of brain [ ] Other diagnosis [ ] Unable to determine In addition, please specify: Present on Admission (POA): [ x ] Yes [ ] No [ ] Unable to determine For continuity of documentation, please document condition throughout progress notes and discharge summary. Thank You. CLINICAL INDICATORS - SIGNS / SYMPTOMS / LABS HEAD CT REPORT: "MIDLINE SHIFT IS UNCHANGED MEASURING APPROXIMATELY 5.4MM." H&P: "CT SCAN WAS PERFORMED, WHICH SHOWED A RIGHT-SIDED SUBDURAL HEMATOMA OF SUBACUTE NATURE SPANNING THE ENTIRE RIGHT CEREBRAL CONVEXITY WITH MASS EFFECT MEASURING ROUGHLY 4.5MM OF MIDLINE SHIFT, RIGHT TO LEFT." RISKS: HYPERTENSION SUBDURAL HEMATOMA TREATMENT: MONITORING ON CRITICAL CARE AND STROKE UNIT NEUROSURGERY CONSULT BRAIN CT APRESOLINE PO AND IV (06/28-PRESENT) NORVASC (06/28-PRESENT) COZAAR (06/29-PRESENT) (This form is maintained as a part of the permanent medical record) [employer] 2014 [employer]. All Rights Reserved DOUGLAS [email or web address] Office: [phone] [facility]
[2018-06-30 15:40] VITALS: BP 152/78
[2018-06-30 15:43] VITALS: TEMP 98.9
[2018-06-30] MEDS: Loratadine 10 MG TAB PO PRN (15:43)
--- NOTE | 2018-06-30 17:28 | PDOC.CTH ---
Cardiology Progress Note - Subjective Pt. seen and eval. by me. No c/o's.No new events. - Objective Vital Signs Temp Pulse Resp BP BP BP Pulse Ox 06/30/18 15:43 66 152/78 H 06/30/18 15:42 98.9 F 66 16 100 06/30/18 15:40 152/78 H 06/30/18 12:15 138/74 06/30/18 12:00 97.7 F 75 16 99 06/30/18 08:29 57 L 152/78 H 06/30/18 08:28 57 L 152/78 H 06/30/18 08:20 97 06/30/18 08:18 152/78 H 06/30/18 07:51 98.2 F 57 L 16 99 Weight 143 lb 1.6 oz 06/29/18 06/30/18 07/01/18 06:59 06:59 06:59 Intake Total 1656 Output Total 1000 Balance 656 - Physical Examination General/Neuro: alert & oriented x3 Neck: carotid US brisk Lungs: CTA, unlabored respirations Heart: RRR Abdomen: no HSM, NT/ND - Telemetry Telemetry Rhythm: NSR - Labs Result Diagrams: 06/28/18 04:10 06/28/18 04:10 - Assessment/Plan . 1. CHB: 1 episode for 3 seconds with ventricular escape. Pt. was asymptomatic.. Hold betablockers. Consider event monitor as an outpt. If further episodes she may need a pacemaker. She could be d/c'd if the BP is stable. F/U later this week in office. 2. subdural hematoma: uncertain etiology. 3. HTN: increase ARB.
[2018-06-30] MEDS ORDERED: Losartan 25 MG TAB PO SCH (17:30)
--- NOTE | 2018-06-30 22:32 | DIS ---
DATE OF ADMISSION: 06/27/2018 DATE OF DISCHARGE: 06/30/2018 DISCHARGE DISPOSITION: Home. PRIMARY DISCHARGE DIAGNOSES: 1. Subdural hematoma. 2. Hypertensive urgency. SECONDARY DISCHARGE DIAGNOSES: 1. Hypertension. 2. Diabetes type 2. 3. Dyslipidemia. 4. Incidental finding of aneurysm of anterior communicating artery. PRIMARY PROCEDURE/OPERATION: None. RADIOLOGICAL INVESTIGATION: CT [facility] of [place] showed anterior communicating artery aneurysm. CT brain showed subdural hematoma. Echocardiography was normal. SIGNIFICANT LABORATORY DATA: Hemoglobin 11.7, creatinine 0.98. DISCHARGE MEDICATIONS: 1. Alprazolam 1 mg daily p.r.n. 2. Amlodipine 10 mg daily. 3. Metformin 1000 mg b.i.d. 4. Lipitor 10 mg p.o. at bedtime. 5. Hydrochlorothiazide 25 mg p.o. daily. 6. Losartan 100 mg p.o. daily. CONTRAINDICATION: None. CODE STATUS: Full code. INPATIENT TRANSPORTATION MODELER: Neurosurgeon was primary, cardiology was consulted, and Sound Team was following. Dr. Casper was also following. TEST RESULT PENDING ON DISCHARGE: None. ALLERGIES: NO KNOWN DRUG ALLERGIES. DISCHARGE PLAN: Posthospital, the patient will follow up with neurosurgeon, primary care physician, and Cardiology as instructed. HOSPITAL COURSE: The patient was admitted under neurosurgeon for subdural hematoma. She was observed in CCU. Sound Team was managing blood pressure, we had increased blood pressure medication as above. On telemetry floor, she had 1 episode of complete heart block, which was resolved. Echocardiography was unremarkable. The patient was cleared for discharge from Cardiology perspective. All new medication prescription sent to her pharmacy. The patient is medically stable for discharge. Job ID: [id number]
== END 2018-06-30 19:52 | disposition home or self-care (01) | DRG 64 ==
LOC: ERS 15:45 → CCU 16:15 → 2SE 06-28 19:32
PROVIDERS: ADMIT Neurological Surgery; ATTEND Neurological Surgery
DX: I62.00 Nontraumatic subdural hemorrhage, unspecified (principal); G93.5 Compression of brain; I16.1 Hypertensive emergency; I44.2 Atrioventricular block, complete; F41.9 Anxiety disorder, unspecified; F32.9 Major depressive disorder, single episode, unspecified; E11.9 Type 2 diabetes mellitus without complications; E78.5 Hyperlipidemia, unspecified; I67.1 Cerebral aneurysm, nonruptured; D64.9 Anemia, unspecified; F17.200 Nicotine dependence, unspecified, uncomplicated
CPT/HCPCS: 36416; 70450; 70496; 80048; 85025; 93306; J0360; Q9966

== ENCOUNTER 2018-07-03 12:13 | Inpatient (IN) | payer MEDICARE ==
[~2018-07-03 12:13] MED LIST changes: +Dexamethasone 20 MG/5 ML VIAL ONE; +Glycopyrrolate 0.2 MG/ML 5 ML SYRINGE ONE; -ISOVUE-370 76%-LOCM 1 ML ONE; +Lidocaine 1% PF 5 ML VIAL ONE; +Ondansetron PF 4 MG/2 ML Vial ONE; +PHENYLEPHRINE-NS 100 MCG/ML 10 ML SYRINGE ONE; +PROPOFOL 200 MG/20 ML VIAL ONE; +Rocuronium Bromide 10 MG/ML (10ML VIAL) ONE; +Succinylcholine Chloride 20 MG/ML 10 ml SYRINGE FS ONE; +ePHEDrine 50 MG/ML VIAL ONE
[2018-07-03 12:58] LABS: #Monocytes 0.3 thou/uL (0.11-0.59); #Neutrophils 6.4 thou/uL (1.40-6.50); %Basophils 0.6 % (0.0-1.0); %Eosinophils 0.1 % (0.0-10.0); %Lymphocytes 12.8 % (21.0-51.0); %Monocytes 4.2 % (0.0-10.0); %Neutrophils 82.3 % (42.0-75.0); Hemoglobin 13.9 g/dL (12.0-16.0); Mean Corpuscular HGB CONC 31.3 g/dL (32.0-36.0); Mean Corpuscular Hemoglobin 29.9 pg (27.0-31.0); Mean Corpuscular Volume 95.5 fL (78.0-98.0); Mean Platelet Volume 8.4 fL (7.4-10.4); Platelet Count 356 thou/uL (130-400); RBC Distribution Width 13.8 % (11.5-14.5); Red Blood Cell (RBC) Count 4.65 mill/uL (4.20-5.40); White Blood Cell (WBC) Count 7.8 thou/uL (4.8-10.8)
[2018-07-03] MEDS ORDERED: Metoprolol Tartrate 5 MG/5 ML VIAL ONE ×2 (13:08→13:41)
[2018-07-03] MEDS ORDERED: Acetaminophen 500 MG TAB ONE (13:08)
[2018-07-03 13:22] LABS: ALT (SGPT) 7 U/L (8-55); AST (SGOT) 9 U/L (5-34); Alkaline Phosphatase 65 U/L (40-150); Anion Gap 16 mmol/L (10-20); BUN (Urea Nitrogen) 14 mg/dL (9.8-20.1); Bilirubin, Total 0.5 mg/dL (0.2-1.2); Calc. Creatinine Clearance 0 mL/min (70-130); Calcium 10.6 mg/dL (7.8-10.44); Carbon Dioxide 25 mmol/L (23-31); Chloride 99 mmol/L (98-107); Estimated GFR-MDRD 70; Globulin 3.6 g/dL (2.4-3.5); Glucose 156 mg/dL (80-115); Potassium 3.2 mmol/L (3.5-5.1); Protein, Total 7.6 g/dL (6.0-8.3); Sodium 137 mmol/L (136-145)
[2018-07-03 13:28] LABS: Bilirubin Negative (Negative); Blood, Urine Trace (Negative); Clarity CLEAR (Clear); Glucose, Urine (Dipstick) Negative (Negative); Leukocyte Negative (Negative); Nitrite Negative (Negative); Protein, Urine (Dipstick) 30 mg/dL (Neg-Trace); Specific Gravity, Urine 1.015 (1.002-1.036); pH, Urine 7.5 (5.0-9.0)
[2018-07-03 13:30] LABS: Bacteria/HPF None Seen HPF (None Seen); Hyaline Casts/LPF 0-3 HYALINE CAST LPF (0-3 Hyaline); Squamous Epithelial 0-3 HPF (0-3); WBC/HPF None Seen HPF (0-3)
[2018-07-03 13:40] LABS: Amphetamine Not Detected (NotDetected); Barbiturates Screen Not Detected (NotDetected); Benzodiazepine Screen Detected (NotDetected); Cocaine Metabolite Screen Not Detected (NotDetected); Medtox Control Line Valid? VALID (VALID); Medtox Reader # READER 4; Methadone Not Detected (NotDetected); Methamphetamine Not Detected (NotDetected); Opiate Screen Not Detected (NotDetected); Oxycodone Screen Not Detected (NotDetected); Phencyclidine (PCP) Not Detected (NotDetected); THC/Cannabinoid Screen Not Detected (NotDetected); Tricyclic Screen Not Detected (NotDetected)
[2018-07-03] MEDS ORDERED: niCARdipine 20MG In NaCl 20 MG/200 ML BAG ONE (13:56)
[2018-07-03 13:59] LABS: PTT 28.8 SEC (22.9-36.1); Prothrombin Time 13.6 SEC (12.0-14.7)
--- NOTE | 2018-07-03 14:11 | CT ---
HEAD CT WITHOUT CONTRAST: Date: 07/03/18 COMPARISON: 06/27/18. HISTORY: Head trauma, head pain. TECHNIQUE: Axial CT imaging obtained at 5 mm intervals from vertex through skull base without contrast. FINDINGS: The visualized paranasal sinuses and mastoid air cells are well aerated. There is no displaced calvar ial fracture. There is a prominent subdural hematoma on the right, which is primarily isodense, but demonstrates ar eas of hyperdensity suggesting acute/subacute subdural hematoma. This has enlarged significantly sinc e the 06/27/18 examination, measuring up to approximately 1.3 cm in transverse dimension. In addition , there is subdural hemorrhage along the falx to the left of midline near the vertex. Hyperdensity is seen along the tentorium, particularly on the left, evidence of subdural blood. There is prominent m idline shift from right to left measuring approximately 1.1 cm at the axial level of the septum pellu cidum, increased from 4.0 mm on the prior exam. There is mass effect on the midbrain with effacement of the CSF adjacent to the midbrain bilaterally suggesting uncal herniation, new. There is also new s ubfalcine herniation with associated dilation of the left lateral ventricle. IMPRESSION: Bilateral subdural hematomas, right greater than left. Subdural hematoma on the right is acute on sub acute. There is marked interval enlargement of right subdural blood with significant new/worsened mas s effect, including 1.1 cm of midline shift with associated bilateral uncal herniation and subfalcine herniation. Emergent neurosurgical consultation is advised. Results discussed with Tasha Mathew at 1302 hours on 07/03/18. CODE CR. POS: OLIVIA
[2018-07-03] MEDS ORDERED: levETIRAcetam 500 MG/100 ML PREMIX BAG ONE (14:15)
[2018-07-03] MEDS ORDERED: Dexamethasone 10 MG/ML VIAL ONE (14:15)
[2018-07-03] MEDS ORDERED: Bacitracin Zinc Ointment 30 gm TUBE ONE (14:54)
[2018-07-03] MEDS ORDERED: Thrombin 5000 UNITS/5 ML VIAL ONE (15:10)
[2018-07-03] MEDS ORDERED: Sodium Chloride 0.9% 30 ML ONE (15:10)
[2018-07-03] MEDS ORDERED: Lidocaine 0.5%/Epinephrine 1:200,000 50 ml Vial ONE (15:10)
[2018-07-03] MEDS ORDERED: Fentanyl 100 MCG/2 ML VIAL ONE (15:28)
[2018-07-03] MEDS ORDERED: Rocuronium Bromide 50 MG/5 ML VIAL ONE (15:44)
--- NOTE | 2018-07-03 15:50 | PRG ---
DATE OF SERVICE: 07/03/2018 SUBJECTIVE: I personally interviewed and examined the patient, and agreed with documentation of Kathrin Guzmán PA-C, dated 07/03/2018. Briefly, Talita Small is a 62-year-old woman who had a fall and subdural hematoma last week. She was admitted on the 27 of June. She was treated conservatively at that time and discharged. Because of the question of whether there was a trauma involved or this is spontaneous subdural hematoma. CT angiogram was performed showing a very tiny possible ACOM aneurysm. She had nice recovery in the hospital and was discharged home. She came back in today after a fall and increased midline shift from right to the left with subacute and chronic blood in the subdural space. Here in our emergency department, Ms. Small is more somnolent than she has been as an outpatient. She wakes to answer few questions appropriately and then drifts back to sleep. She can move both sides well although the left side was little slower than the right. There could be some pronator drift. I reviewed imaging. The findings are as above. I think the first order of business is to treat the mass effect. Hopefully jerica hole evacuation of the subacute portion of the subdural hematoma will allow for resolution of some mass effect. If the subdural is too thick to be evacuated through bur holes, then a craniotomy may be performed. We may follow up with conventional angiography and attempt at coiling, if we were are suspicious that there are aneurysm was responsible for the event last week. Dr. Benson is familiar with the patient and I will review clinical care with him. I attempted to obtain consent for jerica hole evacuation of subdural hematoma from family members who were present. She is too somnolent now to consent for herself. We will take her to the operating room and I will follow up with her family thereafter. Job ID: [id number] [facility] [place] DIVISIONМарина
[2018-07-03] MEDS ORDERED: Dexamethasone 20 MG/5 ML VIAL ONE (15:51)
[2018-07-03] MEDS ORDERED: Ondansetron PF 4 MG/2 ML Vial ONE (15:51)
[2018-07-03] MEDS ORDERED: Sodium Chloride 0.9% 20 ML ONE (16:18)
--- NOTE | 2018-07-03 16:46 | HP ---
HISTORY OF PRESENT ILLNESS: Briefly, Ms. Small is a 62-year-old female, who was brought to the emergency room following a fall in her home. The patient was discharged from the hospital approximately 5 days ago. She had a severe headache on 06/27/18 with significant hypertensive and was found to have a subdural hematoma. She was discharged home on 06/30/18. The patient's friend who is with her states that when she called to check on her this morning she sounded "off" and when she got to her apartment to check on her, she was slightly altered. When she was getting her ready to go to the emergency room or the primary care office, the patient fell in the bathroom, striking her head, and she was transported to the ED. The patient is currently resting in her ER bed. She is groggy but arousable. She is moving all 4 extremities and has no complaints at this time. MEDICATIONS: 1. Aspirin. 2. Hydralazine. 3. Xanax. 4. Metformin. 5. Metoprolol. 6. Amlodipine. 7. Pravastatin. 8. Losartan. PAST MEDICAL HISTORY: 1. Glaucoma. 2. Diabetes. 3. Hyperlipidemia. 4. Hypertension. PAST SURGICAL HISTORY: 1. Chest abscess. 2. Appendectomy. 3. Hysterectomy. SOCIAL HISTORY: The patient currently uses tobacco, smokes cigarettes, smokes approximately half pack a day states as well. The patient denies alcohol or other drug use. PHYSICAL EXAMINATION: VITAL SIGNS: Blood pressure 147/71, heart rate 67, respirations 20, pain is 5, and O2 saturations 99% on room air. CONSTITUTIONAL: The patient is drowsy, but wakes up when you speak loudly to her. She is afebrile. Currently normotensive. Oriented to person and place. HEENT: Normocephalic and atraumatic. Pupils are equal, round, and reactive to light. Extraocular movements are intact. Hearing is intact. Moist mucous membranes. RESPIRATIONS: Normal work of breathing on room air. CARDIO: Regular rate and rhythm. EXTREMITIES: Upper and lower extremities are working well. She will follow commands with good lining caser strength on the left and decreased on the right upper extremity. Lower extremities are working well. Dorsiflexion and plantar flexion, normal. Pulses are normal. NEUROLOGIC: The patient is drowsy, but she is arousable. She is oriented to person and place. Her speech is slightly slurred. She is confused about why she is at the hospital and has poor memory, and she does not fall asleep quite quickly. Slight right facial droop and decreased upper extremity strength, especially on the right. IMAGING DATA: CT of the head shows bilateral subdural hematoma, right greater than left. Subdural hematoma on the right is acute and subacute. There is marked interval enlargement of the right subdural blood with significant new/worsening mass effect including 1.1 cm midline shift with associated bilateral uncal herniation and subfalcine herniation. ASSESSMENT AND PLAN: Ms. Small is a 62-year-old female, who sustained acute on chronic subdural hematoma with significant midline shift, she is cognitively deteriorating. We will take her to surgery jerica hole to drain the hematoma. Job ID: [id number] [facility]
[2018-07-03] MEDS ORDERED: SUGAMMADEX SODIUM 500 MG/5 ML VIAL ONE (16:55)
[2018-07-03] MEDS ORDERED: diphenhydrAMINE 50 MG CAP PO PRN (16:57)
[2018-07-03] MEDS ORDERED: Promethazine 25 MG TAB PO PRN (16:57)
[2018-07-03] MEDS ORDERED: Mag-Al 1200 mg/1200 mg/30 ML UDCUP PO PRN (16:57)
[2018-07-03] MEDS ORDERED: traMADol HCl 50 MG TAB PO PRN (16:57)
[2018-07-03] MEDS ORDERED: Acetaminophen 650 MG Suppository PR PRN (16:57)
[2018-07-03] MEDS ORDERED: Promethazine HCl 25 MG/ML VIAL IM PRN (16:57)
[2018-07-03] MEDS ORDERED: Ondansetron PF 4 MG/2 ML Vial IVP PRN (16:57)
[2018-07-03] MEDS ORDERED: Morphine 4 MG/ML VIAL SLOW IVP PRN (16:57)
[2018-07-03] MEDS ORDERED: diphenhydrAMINE 50 MG/ML VIAL IVP PRN (16:57)
[2018-07-03] MEDS ORDERED: Acetaminophen/Codeine 30-300mg Tablet PO PRN (16:57)
[2018-07-03] MEDS ORDERED: Docusate 100 MG CAP PO PRN (16:57)
[2018-07-03] MEDS ORDERED: Morphine 2 MG/ML SYRINGE SLOW IVP PRN (16:57)
[2018-07-03 18:29] VITALS: BMI 23.7
[2018-07-03] MEDS: hydrALAZINE 20 MG/ML VIAL SLOW IVP PRN (18:40)
[2018-07-03] MEDS: Sodium Chloride 0.9% 1,000 ML IV SCH (18:50)
[2018-07-03] MEDS: CEFAZOLIN 2 GM in Premix Bag 1 BAG IVPB SCH (18:50)
[2018-07-03] MEDS: niCARdipine HCl 25 MG in Sodium Chloride 0.9% 250 ML 240 ML IVPB SCH ×2 (19:01→22:34)
[2018-07-03] MEDS: Cepastat Lozenges 1 LOZ PO PRN ×2 (19:32→22:23)
[2018-07-03] MEDS: HYDROcodone/Acetaminophen 7.5/325 mg Tablet PO PRN (22:40)
--- NOTE | 2018-07-03 22:48 | OP ---
DATE OF PROCEDURE: 07/03/2018 CLEANER AND POLISHER: Kathrin Guzmán PA-C. PREOPERATIVE INDICATION: Prevent neurological deterioration. PREOPERATIVE DIAGNOSIS: Subacute subdural hematoma with increased mass effect and midline shift, right side. POSTOPERATIVE DIAGNOSIS: Subacute subdural hematoma with increased mass effect and midline shift, right side. OPERATIVE PROCEDURE: [place] hole evacuation of right-sided subdural hematoma, placement of subdural drain. DESCRIPTION OF PROCEDURE: The patient was brought to the operating room. General endotracheal anesthesia was induced. The patient was positioned supine on the operating table with the right shoulder bumped and the head supported by gel-filled doughnut-shaped headrest. Hair was removed from the right side of the scalp with electric clippers. We planned out an incision that could be converted into a craniotomy incision if necessary. We planned a frontal and parietal portion of this incision for jerica holes and under those incisions infused local anesthetic. The right side of the scalp was sterilely prepped and draped. We opened our two incisions with a 10 blade knife and controlled bleeding with bipolar cautery. We dissected to the periosteal layer and placed a self-retaining retractor. A high-speed drill with the perforating bit was used to fashion a frontal and parietal jerica hole. We waxed the edges of the jerica holes. We coagulated the dura with a bipolar cautery. We opened the dura in a cruciate fashion, starting in the parietal area and then moving to the frontal area. Dark black and thick subdural fluid emanated under some pressure. We irrigated with multiple liters of bacitracin irrigation until the irrigant was running clear and clear. We placed a drain in the subdural space through the parietal incision and tunneled it posteriorly through a separate stab incision and connected the distal end of the drain to a lumbar drain bag. We closed our incisions in anatomical layers after filling the subdural space with irrigant. We applied sterile dressings. This was a clean case, no contamination. Job ID: [id number]
[2018-07-04] MEDS: niCARdipine HCl 25 MG in Sodium Chloride 0.9% 250 ML 240 ML IVPB SCH ×7 (01:08→21:59)
[2018-07-04] MEDS: CEFAZOLIN 2 GM in Premix Bag 1 BAG IVPB SCH ×3 (01:09→17:51)
[2018-07-04] MEDS: Cepastat Lozenges 1 LOZ PO PRN (01:12)
[2018-07-04] MEDS: Labetalol HCl 100 MG/20 ML VIAL SLOW IVP PRN ×2 (01:36→22:17)
[2018-07-04] MEDS: HYDROcodone/Acetaminophen 7.5/325 mg Tablet PO PRN ×4 (05:49→21:12)
[2018-07-04] MEDS: Sodium Chloride 0.9% 1,000 ML IV SCH ×2 (05:49→19:21)
--- NOTE | 2018-07-04 08:28 | CT ---
PRELIMINARY REPORT/[facility]/EMERGENCY AFTER HOURS PROCEDURE: EXAM: CT Head Without Contrast EXAM DATE/TIME: 07/04/2018 4:18 AM CLINICAL HISTORY: 62 years old, female; Device placement; Cerebral fluid drainiage device or shunt; Prior surgery; Surg geovanna date: Post-operative (0-2 days); Patient HX: S/P craniotomy TECHNIQUE: Imaging protocol: Axial computed tomography images of the head/brain without contrast. COMPARISON: CT Brain WO Con 07/03/2018 12:54 PM FINDINGS: Brain: There is been interval placement of a right subdural drains with evacuation of the previously described right subdural hemorrhage. There is persistent layering of hemorrhage along the falx and le ft tentorium. There is pneumocephalus noted within the right frontal subdural space, likely related t o recent intervention. Midline shift: There has been marked interval decrease in right to left midline shift now measuring o nly 3 mm. Ventricles: Normal. No ventriculomegaly. Bones/joints: Right jerica holes are noted. No acute fracture. Sinuses: Visualized sinuses are unremarkable. No acute sinusitis. Mastoid air cells: Visualized mastoid air cells are unremarkable. No mastoid effusion. Soft tissues: There are cutaneous sutures along the right superior scalp. IMPRESSION: Interval right subdural drain placement with evacuation of the right frontal subdural hemorrhage and marked decrease in right to left midline shift as above. Persistent subdural hemorrhage layering along the falx and left tentorium. Thank you for allowing us to participate in the care of your patient. Dictated and Authenticated by: Mandeep Saez MD 07/04/2018 4:48 AM Central Time ([place] & [place]) FINAL REPORT CT BRAIN WITHOUT IV CONTRAST: INDICATIONS: Status post craniotomy. COMPARISON: 07/03/2018 FINDINGS: I agree with the preliminary report provided. There has been partial evacuation of the large right convexity subdural hematoma, seen on the compari son examination, with placement of a right frontal approach dural drain. There is improvement in the right to left midline shift, now only being 3 mm, where it previously was 11 mm. The dural hemorrha ge along the falx and left aspect of the tentorium appears stable. A moderate amount of pneumocephal us is seen within the subdural site overlying the right frontal parietal temporal convexity. The tip of the drain resides at the anterior aspect of the right middle cranial fossa. Mastoid air cells an d paranasal sinuses are clear. IMPRESSION: I agree with the preliminary reported provided for the findings. POS: BH
[2018-07-04] MEDS: levETIRAcetam 500 MG TAB PO SCH ×2 (08:40→21:11)
[2018-07-04] MEDS: hydrALAZINE 20 MG/ML VIAL SLOW IVP PRN ×4 (08:41→17:56)
[2018-07-04] MEDS ORDERED: ALPRAZolam 0.5 MG TAB PO PRN (10:50)
[2018-07-04] MEDS ORDERED: HumaLOG 300 UNITS/3 ML VIAL SC PRN (10:52)
[2018-07-04] MEDS ORDERED: Dextrose 50% Abboject 50 ML SYRINGE SLOW IVP PRN (10:52)
[2018-07-04] MEDS ORDERED: Dextrose 5% in Water 1,000 ML IV PRN (10:52)
[2018-07-04] MEDS ORDERED: Amlodipine 10 MG TAB PO SCH (11:00)
--- NOTE | 2018-07-04 11:08 | PDOC.EVN ---
Event Note - Event Note Event Note: Patient is full code. Surrogate decision maker is her friend Shea Chery.
[2018-07-04] MEDS ORDERED: Losartan 25 MG TAB PO SCH (11:15)
--- NOTE | 2018-07-04 13:40 | HP ---
Consultation from Dr. Rodrigues for medical management. HISTORY OF PRESENT ILLNESS: This patient is a 62-year-old female, who was just in the hospital about 5 days ago with a subdural hematoma. She was monitored and subsequently released. The patient was then found by yesterday by a friend, who came to visit, who have significant altered mental status. Apparently, the patient was able to get up and answer the door, but was acting otherwise inappropriately, so her friend called for EMS and the patient was brought into the hospital. The patient's CT scan revealed significant subdural hematoma with over 1 cm of midline shift and the patient was taken to surgery, where a jerica hole was placed. She has had over 450 mL out from the jerica hole drain. She is vastly improved and presently feels generally well. The patient reports at home she generally manages her blood sugars quite well, has a good A1c and she only monitors her blood sugars a couple of times per week. REVIEW OF SYSTEMS: The patient actually has no memory of the day of admission prior to waking up in the hospital with the drain in place. PAST MEDICAL HISTORY: Notable for glaucoma, anxiety, diabetes, hyperlipidemia, and hypertension. PAST SURGICAL HISTORY: Chest abscess drainage, appendectomy, and hysterectomy. FAMILY HISTORY: Negative for coronary artery disease, stroke, or cancer. SOCIAL HISTORY: The patient smokes half pack of cigarettes per day. She is trying to quit sometimes converting over to vaping. No alcohol. No drugs. ALLERGIES: NONE. CURRENT MEDICATIONS: 1. Aspirin. 2. Hydrochlorothiazide. 3. Xanax p.r.n., which she typically takes 1 to 2 times per week. 4. Metformin. 5. Amlodipine. 6. Atorvastatin. 7. Losartan. PHYSICAL EXAMINATION: VITAL SIGNS: Temperature is 97.5, heart rate 64, blood pressure 143/68, and O2 sat 98%. GENERAL APPEARANCE: Age-appropriate female in no distress. She is awake, alert, oriented, pleasant, and cooperative. HEENT: PERRL. No OP lesions. HEART: Has a short mid systolic murmur. Otherwise, regular rate and rhythm. LUNGS: Clear to auscultation bilaterally with good chest wall expansion and air exchange. ABDOMEN: Soft, nontender, and nondistended. Positive bowel sounds. No masses. No organomegaly. EXTREMITIES: No cyanosis, clubbing, or edema. NEUROLOGICAL: The patient is appropriate, cognitively intact. She has no evidence of facial droop and spontaneously moving all extremities well. LABORATORY DATA: INR is 1.0. Glucose 159. IMAGING DATA: Repeat brain CT shows interval right subdural drain placement with evacuation of the right frontal subdural hemorrhage and marked decrease in right to left midline shift with some persistent subdural hemorrhage layering along the falx and left tentorium. IMPRESSION AND PLAN: 1. Subdural hematoma, status post jerica hole with drain with significant improvement of the patient's altered mental status and facial droop. She appears to be neurologically stable. She is admitted by Neurosurgery. Nursing indicates the plan may be to withdrawal the drain even as early as today. 2. Diabetes mellitus. We will change her to a diabetic diet. Resume her metformin. Start Accu-Cheks and sliding-scale insulin. 3. Hypertension. The patient had significantly elevated pressures. Initially, we will try to get her back on amlodipine and hydrochlorothiazide and losartan to see if we can get her off the Cardene drip. 4. Anxiety. Continue with p.r.n. Xanax. 5. The patient had some minor nonspecific EKG abnormalities on initial presentation, likely related to the intracranial pressure and stable presently. Job ID: [id number]
[2018-07-04] MEDS: metFORMIN 500 MG TAB PO SCH (17:50)
[2018-07-04] MEDS: Atorvastatin Calcium 10 MG TAB PO SCH (21:11)
[2018-07-05] MEDS: niCARdipine HCl 25 MG in Sodium Chloride 0.9% 250 ML 240 ML IVPB SCH ×3 (01:31→08:18)
[2018-07-05] MEDS: CEFAZOLIN 2 GM in Premix Bag 1 BAG IVPB SCH ×3 (02:55→17:13)
[2018-07-05] MEDS: HYDROcodone/Acetaminophen 7.5/325 mg Tablet PO PRN ×3 (03:13→20:44)
--- NOTE | 2018-07-05 04:01 | PRG ---
DATE OF SERVICE: 07/04/2018 Ms. Small is one day post jerica hole drainage of subdural hematoma. On ICU this morning, she is awake, alert, and oriented. She is neurologically significantly improved since yesterday when I saw her in the emergency department. Her CT has also improved. There is very little subdural blood. There has been some issue with controlling her blood pressure overnight. We would ideally like her blood pressure below 140. We will make sure that she is on Keppra b.i.d. and she will get up and move around. We will leave the drain for one more day and most likely remove it in the morning. Job ID: [id number]
[2018-07-05] MEDS: Sodium Chloride 0.9% 1,000 ML IV SCH (05:18)
[2018-07-05] MEDS: metFORMIN 500 MG TAB PO SCH ×2 (07:44→17:13)
[2018-07-05] MEDS: levETIRAcetam 500 MG TAB PO SCH ×2 (07:45→20:34)
[2018-07-05] MEDS: Losartan 25 MG TAB PO SCH (07:45)
[2018-07-05] MEDS: Amlodipine 10 MG TAB PO SCH (07:46)
[2018-07-05] MEDS: Hydrochlorothiazide 25 MG TAB PO SCH (07:47)
[2018-07-05] MEDS: cloNIDine 0.3 MG TAB PO PRN ×2 (10:42→23:03)
--- NOTE | 2018-07-05 10:47 | CON ---
DATE OF CONSULTATION: 07/05/2018 REASON FOR CONSULTATION: CCU placement. HISTORY OF PRESENT ILLNESS: This is a 62-year-old female, who was here for treatment of subdural hematoma. She had jerica holes placed. She remains in the CCU on a nicardipine drip. She says she needs her eye drops order. PAST MEDICAL HISTORY: 1. Glaucoma. 2. Diabetes mellitus. 3. Subdural hematoma. 4. Hypertension. 5. Hyperlipidemia. 6. Anxiety. PAST SURGICAL HISTORY: 1. Chest abscess drain. 2. Appendectomy. 3. Hysterectomy. 4. Jerica hole drainage. FAMILY MEDICAL HISTORY: Negative for COPD. SOCIAL HISTORY: Smokes half pack per day. Does not consume alcohol. Does not use illicit drugs. ALLERGIES: NONE. MEDICATIONS: Prior to admission; 1. Aspirin. 2. Hydrochlorothiazide. 3. Xanax. 4. Metformin. 5. Amlodipine. 6. Atorvastatin. 7. Losartan. REVIEW OF SYSTEMS: A 12-point review of systems is otherwise negative. PHYSICAL EXAMINATION: VITAL SIGNS: Temperature 98.4, pulse 81, blood pressure 142/67, and O2 saturation 95%. HEENT: She has a drain in the right amish area. Pupils reactive. Sclerae icteric. Oropharynx clear. NECK: No adenopathy or JVD. CHEST: Clear. CARDIAC: S1 and S2. Regular. ABDOMEN: Soft. EXTREMITIES: No edema. LABORATORY DATA: No labs have been done. ASSESSMENT AND PLAN: 1. Status post jerica hole placement for subdural hematoma. Apparently, drain is going to be removed today. 2. Glaucoma - I will restart her eyedrops. 3. Hypertension - we will stop the nicardipine drip and treat her with p.r.n. medications on top of the losartan and amlodipine as needed. Job ID: [id number]
--- NOTE | 2018-07-05 12:28 | PRG ---
DATE OF SERVICE: 07/05/2018 SUBJECTIVE: Ms. Small is 2 days out from a jerica hole evacuation of a subdural hematoma. She is markedly more alert than she was before surgery. Her neurological function is quite good. The drain is outputting some blood-tinged CSF. There is marked diminishment in the mass effect on the postoperative scan yesterday. We left the drain in to collect any more blood over the subsequent 24 hours and I think it is ready for removal today. Our plan is to remove the drain. We could discharge Ms. Small, but her blood pressure has been difficult to control. When she is on a oral regimen that she can take at home (one that would not allow her systolic blood pressures to reach the 200s like it did before this admission), then she can be discharged. Until then, we will depend on the medical team to make adjustments. Job ID: [id number]
[2018-07-05 12:39] LABS: #Basophils 0.1 thou/uL (0.0-0.2); #Lymphocytes 1.9 thou/uL (1.20-3.40); #Monocytes 0.6 thou/uL (0.11-0.59); #Neutrophils 7.1 thou/uL (1.40-6.50); %Basophils 0.7 % (0.0-1.0); %Eosinophils 0.3 % (0.0-10.0); %Monocytes 5.8 % (0.0-10.0); %Neutrophils 73.2 % (42.0-75.0); Hemoglobin 12.5 g/dL (12.0-16.0); Mean Corpuscular HGB CONC 31.7 g/dL (32.0-36.0); Mean Corpuscular Hemoglobin 30.4 pg (27.0-31.0); Mean Corpuscular Volume 95.7 fL (78.0-98.0); Mean Platelet Volume 8.4 fL (7.4-10.4); Platelet Count 358 thou/uL (130-400); RBC Distribution Width 14.1 % (11.5-14.5); Red Blood Cell (RBC) Count 4.11 mill/uL (4.20-5.40); White Blood Cell (WBC) Count 9.7 thou/uL (4.8-10.8)
[2018-07-05 13:03] LABS: Anion Gap 14 mmol/L (10-20); BUN (Urea Nitrogen) 15 mg/dL (9.8-20.1); Calc. Creatinine Clearance 60 mL/min (70-130); Calcium 9.1 mg/dL (7.8-10.44); Carbon Dioxide 21 mmol/L (23-31); Chloride 106 mmol/L (98-107); Estimated GFR-MDRD 68; Glucose 118 mg/dL (80-115); Potassium 3.2 mmol/L (3.5-5.1); Sodium 138 mmol/L (136-145)
--- NOTE | 2018-07-05 14:17 | PRG ---
DATE OF SERVICE: 07/05/2018 SUBJECTIVE: The patient is doing generally well. She states she is much more generally weak than she thought she would be, but she anticipated that she would be able to jump up and run, but finds that she is just a little more fatigued and weak. She has no other specific complaints. She is concerned about managing her blood pressure at home. LABORATORY DATA: White count 9.7, hemoglobin 12.5, and platelets 358. Sodium 138, potassium 3.2, chloride 106, CO2 is 21, BUN 15, creatinine 0.99, and glucose 118. IMPRESSION AND PLAN: 1. Status post subdural hematoma. Drain removed today following jerica hole drainage with significant improvement. No significant neurological deficits. 2. Hypertension. The patient's blood pressure remains significantly elevated. Overnight, Dr. Rasheed has added clonidine 0.3 b.i.d. Presently, her blood pressure seems to be substantially improved in the 120 systolic. She is on her other usual home medications. She will be moving to the floor and given her blood pressure in another 24 hours to ensure that we are going to maintain adequate control. 3. Diabetes mellitus, very well controlled. Continue metformin, Accu-Cheks, and sliding scale. 4. Anxiety. Continue with the p.r.n. Xanax. 5. Discontinue Bernstein catheter. Job ID: [id number]
--- NOTE | 2018-07-05 17:36 | EKG ---
Test Reason : ER INDICATION Blood Pressure : / mmHG Vent. Rate : 092 BPM Atrial Rate : 092 BPM P-R Int : 216 ms QRS Dur : 098 ms QT Int : 392 ms P-R-T Axes : 070 020 119 degrees QTc Int : 484 ms Sinus rhythm with 1st degree A-V block with occasional Premature ventricular complexes Biatrial enlargement Prolonged QT Abnormal ECG Confirmed by MICKEY TOMLIN MD ([id number]), visual effects editor GRETCHEN LERNER ([id number]) on 07/05/2018 5:35:51 PM Referred By: TANNER Confirmed By:MICKEY TOMLIN MD
[2018-07-05] MEDS: Atorvastatin Calcium 10 MG TAB PO SCH (20:34)
[2018-07-05] MEDS: hydrALAZINE 20 MG/ML VIAL SLOW IVP PRN (20:36)
[2018-07-05] MEDS: Timolol 0.5% Ophth Soln 5 ml Bottle EA EYE SCH (22:58)
[2018-07-05] MEDS: Latanoprost 0.005% Ophth Soln 2.5 ml Bottle EA EYE SCH (23:02)
[2018-07-06] MEDS: hydrALAZINE 20 MG/ML VIAL SLOW IVP PRN (00:25)
[2018-07-06] MEDS: CEFAZOLIN 2 GM in Premix Bag 1 BAG IVPB SCH (01:50)
[2018-07-06] MEDS: Labetalol HCl 100 MG/20 ML VIAL SLOW IVP PRN ×3 (04:49→06:23)
[2018-07-06] MEDS: Acetaminophen 325 MG TAB PO PRN ×2 (04:58→20:17)
[2018-07-06] MEDS ORDERED: cloNIDine 0.3 MG TAB PO PRN ×2 (06:39→06:46)
--- NOTE | 2018-07-06 06:41 | PDOC.EVN ---
Event Note - Event Note Event Note: Nurse paged me to discuss BP management, nurse called neuro surgery and neuro sx said to call the medicine team. This is a patient with a brain bleed and the surgeon has not given any specific parameters. Not sure if there is a specific surgical need to target a specific BP range. For now will change Clonidine to 0.3 mg q8H from BID to allow the nurse some room to try and target a SBP of 140- 160mmHg. Neuro Surgery team needs to let the medical team know if there is any specific BP range required given that this is a surgical case and not a medical case. Defer further management to day team.
[2018-07-06] MEDS: Losartan 25 MG TAB PO SCH (08:12)
[2018-07-06] MEDS: Amlodipine 10 MG TAB PO SCH (08:12)
[2018-07-06] MEDS: Hydrochlorothiazide 25 MG TAB PO SCH (08:12)
[2018-07-06] MEDS: levETIRAcetam 500 MG TAB PO SCH ×2 (08:12→20:17)
[2018-07-06] MEDS: metFORMIN 500 MG TAB PO SCH ×2 (08:12→17:55)
[2018-07-06] MEDS: Timolol 0.5% Ophth Soln 5 ml Bottle EA EYE SCH ×2 (08:13→20:22)
[2018-07-06] MEDS: HYDROcodone/Acetaminophen 7.5/325 mg Tablet PO PRN (08:17)
[2018-07-06] MEDS ORDERED: Spironolactone 25 MG TAB PO SCH (09:30)
[2018-07-06] MEDS ORDERED: Enalaprilat Dihydrate 1.25 MG/ML VIAL SLOW IVP PRN (09:33)
[2018-07-06] MEDS ORDERED: hydrALAZINE 20 MG/ML VIAL SLOW IVP PRN (09:33)
[2018-07-06] MEDS ORDERED: cloNIDine 0.1mg/24 Hour PATCH TD SCH (09:45)
[2018-07-06] MEDS ORDERED: traMADol HCl 50 MG TAB PO PRN (10:23)
--- NOTE | 2018-07-06 11:28 | PRG ---
DATE OF SERVICE: 07/06/2018 I saw Ms. Smlal walking with her physical therapist in the room this morning. She has been out in the hallway already. She sits down and wonders when she can go home. Ms. Small has required IV medication for blood pressure control in spite of her blood pressure control. Blood pressures remain in the 160s to upper 180s. The blood pressures are too high for discharge. Will depend on the inpatient medical team to evaluate her refractory hypertension despite multiple home medications. If they want to do renal artery ultrasound or further workup, I will defer to their judgment. If they want I will adjust the medications, so that her blood pressure can be in the reasonable range up to say 160 with oral control and she can finally be discharged. Job ID: [id number] MTDD
[2018-07-06] MEDS: cloNIDine 0.1 MG TAB PO PRN (15:52)
[2018-07-06] MEDS: Acetaminophen/Codeine 30-300mg Tablet PO PRN (15:53)
--- NOTE | 2018-07-06 19:41 | PDOC.PN ---
- Subjective Encounter Start Date: 07/06/18 Encounter Start Time: 11:30 Patient seen and examined for med mngt. No CP/SOB/focal deficits. No new complaints. Overnight events noted. - Objective Resuscitation Status - Order Detail: 07/04/18 11:08 Resuscitation Status Routine Resuscitation Status: FULL: Full Resuscitation Discussed with: Patient LEONA Reviewed: Yes Vital Signs & Weight: Vital Signs (12 hours) Temp Pulse Resp BP BP Pulse Ox 07/06/18 17:33 165/79 H 07/06/18 16:00 16 182/81 H 07/06/18 15:52 182/81 H 07/06/18 15:40 97.6 F 68 18 182/81 H 87 L 07/06/18 12:20 97.8 F 64 14 153/75 H 92 L 07/06/18 08:13 77 166/76 H 07/06/18 08:12 77 166/76 H 07/06/18 08:00 92 L 07/06/18 07:40 98.2 F 77 20 166/76 H 92 L Weight Weight 147 lb 0.773 oz Most Recent Monitor Data Heart Rate from ECG 56 NIBP 129/70 NIBP BP-Mean 89 Respiration from ECG 18 SpO2 92 I&O: 07/05/18 07/06/18 07/07/18 06:59 06:59 06:59 Intake Total 4007 1308 Output Total 1614 875 Balance 2393 433 Result Diagrams: 07/05/18 12:17 07/05/18 12:17 Additional Labs: Accuchecks 07/06/18 07/06/18 07/06/18 15:44 11:33 05:26 POC Glucose 110 106 100 07/05/18 21:26 POC Glucose 115 H Phys Exam - Physical Examination Constitutional: NAD Respiratory: no wheezing, no rhonchi Cardiovascular: RRR, no rub Gastrointestinal: soft, positive bowel sounds Musculoskeletal: no edema Dx/Plan - Plan DVT proph w/SCDs 1. HTN - uncontrolled 2. h/o of complete heart block with betablockers 3. Constipation 4. DM2 5. HLD 6. Hypokalemia 7. CKD 2 8. Anxiety PLAN: Add 0.1 mg Clonidine patch Add Aldactone 25 mg daily Cont Losartan/HCTZ/Amlodipine If BP still elevated with add Hytrin HS - Watch for 1st dose syncope with Hytrin Will probably need assistance from Dr Carpio who specializes in HTN mngt AM labs Treat constipation Review of Systems - Review of Systems Respiratory: negative: Cough, Dry, Shortness of Breath, Hemoptysis, SOB with Excertion, Pleuritic Pain, Sputum, Wheezing Cardiovascular: negative: chest pain, palpitations, orthopnea, paroxysmal nocturnal dyspnea, edema, light headedness, other - Medications/Allergies Allergies/Adverse Reactions: Allergies Allergy/AdvReac Type Severity Reaction Status Date / Time Beta-Blockers Allergy Verified 07/06/18 12:28 (Beta-Adrenergic Bloc Medications: Current Medications Acetaminophen (Tylenol) 650 mg PO Q4H PRN PRN Reason: Headache/Fever Or Mild Pain Last Admin: 07/06/18 04:58 Dose: 650 mg Acetaminophen (Tylenol) 650 mg MT Q4H PRN PRN Reason: Headache/Fever Or Mild Pain Acetaminophen/Codeine Phosphate (Tylenol #3) 1 tab PO Q4H PRN PRN Reason: Moderate Pain (4-6) Last Admin: 07/06/18 15:53 Dose: 1 tab Acetaminophen/Codeine Phosphate (Tylenol #3) 2 tab PO Q4H PRN PRN Reason: Severe Pain (7-10) Al Hydroxide/Mg Hydroxide (Maalox) 30 ml PO Q6H PRN PRN Reason: Indigestion Alprazolam (Xanax) 0.5 mg PO BID PRN PRN Reason: Anxiety Last Admin: 07/04/18 23:00 Dose: 0.5 mg Amlodipine Besylate (Norvasc) 10 mg PO DAILY [facility] Last Admin: 07/06/18 08:12 Dose: 10 mg Atorvastatin Calcium (Lipitor) 10 mg PO HS [facility] Last Admin: 07/05/18 20:34 Dose: 10 mg Clonidine (Xvnhrwbf-Wqx-9 Patch) 0.1 mg TD ONE [facility] Stop: 07/13/18 09:46 Last Admin: 07/06/18 11:22 Dose: 0.1 mg Clonidine (Catapres) 0.1 mg PO Q4H PRN PRN Reason: Systolic BP > 160 Last Admin: 07/06/18 15:52 Dose: 0.1 mg Dextrose/Water (Dextrose 50%) 25 gm SLOW IVP PRN PRN PRN Reason: Hypoglycemia Diphenhydramine HCl (Benadryl) 50 mg IVP Q6H PRN PRN Reason: Itching & Insomnia Diphenhydramine HCl (Benadryl) 50 mg PO Q6H PRN PRN Reason: Itching & Insomnia Last Admin: 07/04/18 21:22 Dose: 50 mg Docusate Sodium (Colace) 100 mg PO BIDPRN PRN PRN Reason: Constipation Enalaprilat (Vasotec) 0.625 mg SLOW IVP Q6H PRN PRN Reason: SBP GREATER THAN 160 Glucagon (Glucagon) 1 mg IM PRN PRN PRN Reason: Hypoglycemia Hydralazine HCl (Apresoline) 5 mg SLOW IVP Q15MIN PRN PRN Reason: SBP > 140 mmHg Last Admin: 07/06/18 00:25 Dose: 5 mg Hydralazine HCl (Apresoline) 10 mg SLOW IVP Q4H PRN PRN Reason: SBP Greater Than 180 Hydrochlorothiazide (Hydrochlorothiazide) 25 mg PO DAILY [facility] Last Admin: 07/06/18 08:12 Dose: 25 mg Dextrose/Water (D5w) 1,000 mls @ 0 mls/hr IV .Q0M PRN PRN Reason: Hypoglycemia Insulin Human Lispro (Humalog) 0 units SC .MILD SLIDING SCALE PRN PRN Reason: Mild Correctional Scale Labetalol HCl (Normodyne) 10 mg SLOW IVP Q15MIN PRN PRN Reason: SBP > 140 mmHg Last Admin: 07/06/18 06:23 Dose: 10 mg Latanoprost (Xalatan 0.005% Ophth Soln) 1 drop EA EYE HS [facility] Last Admin: 07/05/18 23:02 Dose: 1 drop Levetiracetam (Keppra) 500 mg PO BID [facility] Last Admin: 07/06/18 08:12 Dose: 500 mg Losartan Potassium (Cozaar) 100 mg PO DAILY [facility] Last Admin: 07/06/18 08:12 Dose: 100 mg Metformin HCl (Glucophage) 1,000 mg PO BID-[facility] Last Admin: 07/06/18 17:55 Dose: 1,000 mg Morphine Sulfate (Morphine) 2 mg SLOW IVP Q1H PRN PRN Reason: Moderate breakthrough pain Morphine Sulfate (Morphine) 4 mg SLOW IVP Q1H PRN PRN Reason: Severe Breakthrough Pain Ondansetron HCl (Zofran) 4 mg IVP Q8H PRN PRN Reason: Nausea/Vomiting Pantoprazole Sodium (Protonix) 40 mg PO DAILY [facility] Last Admin: 07/06/18 08:13 Dose: 40 mg Promethazine HCl (Phenergan) 12.5 mg PO Q4H PRN PRN Reason: Nausea/Vomiting Promethazine HCl (Phenergan) 12.5 mg IM Q4H PRN PRN Reason: Nausea/Vomiting Sodium Chloride (Flush - Normal Saline) 10 ml IVF PRN PRN PRN Reason: Saline Flush Spironolactone (Aldactone) 25 mg PO QAM-WM [facility] Terazosin HCl (Hytrin) 1 mg PO HS [facility] Throat Lozenges (Cepastat Lozenges) 1 anthony PO Q1H PRN PRN Reason: Sore Throat Last Admin: 07/04/18 01:12 Dose: 1 anthony Timolol Maleate (Timoptic 0.5% Oph Soln) 1 drop EA EYE BID [facility] Last Admin: 07/06/18 08:13 Dose: 1 drop Tramadol HCl (Ultram) 50 mg PO Q4H PRN PRN Reason: Mild Pain (1-3) Last Admin: 07/04/18 01:07 Dose: 50 mg Tramadol HCl (Ultram) 100 mg PO Q4H PRN PRN Reason: Moderate Pain (4-6)
[2018-07-06] MEDS: Senokot S 8.6-50 MG TAB PO SCH (20:18)
[2018-07-06] MEDS: Atorvastatin Calcium 10 MG TAB PO SCH (20:18)
[2018-07-06] MEDS: Latanoprost 0.005% Ophth Soln 2.5 ml Bottle EA EYE SCH (20:22)
[2018-07-06] MEDS ORDERED: Terazosin HCl 1 MG CAP PO SCH (21:00)
[2018-07-07] MEDS: cloNIDine 0.1 MG TAB PO PRN (03:15)
[2018-07-07] MEDS: Acetaminophen/Codeine 30-300mg Tablet PO PRN ×3 (03:16→18:38)
--- NOTE | 2018-07-07 03:35 | CON ---
DATE OF CONSULTATION: 07/06/2018 CONSULTING PHYSICIAN: REASON FOR CONSULT: Hypertension. REASON FOR ADMISSION: Altered mentation. HISTORY OF PRESENT ILLNESS: This is a 62-year-old female with history of hypertension, glaucoma, anxiety, type 2 diabetes, came to the hospital with altered mentation and history of subdural hematoma, and Neurosurgery is following. The patient was found to have elevated blood pressure in the hospital even after adjusting the medicines, and Nephrology was consulted. The patient had some changes in medication today. She was started on clonidine patch, spironolactone, and terazosin and was waiting to get the terazosin dose. The patient denies any dizziness. No chest pain or palpitation. No fever or chills. The patient also was finally found to have hypokalemia. Nephrology was consulted for further evaluation. PAST MEDICAL HISTORY: Positive for glaucoma, anxiety, hypertension, type 2 diabetes. PAST SURGICAL HISTORY: Chest abscess drainage, appendectomy, hysterectomy. HOME MEDICATIONS: Aspirin, hydrochlorothiazide, Xanax, metformin, amlodipine, atorvastatin, losartan. ALLERGIES: BETA-BLOCKERS. SOCIAL HISTORY: No smoking, alcohol, or illicit drug abuse. FAMILY HISTORY: No history of kidney disease. REVIEW OF SYSTEMS: CONSTITUTIONAL: Negative for weight loss or gain, ability to conduct usual activities. SKIN: Negative for rash, itching. EYES: Negative for double vision, pain. ENT/MOUTH: Negative for nose bleeding, neck stiffness, pain, tenderness. CARDIOVASCULAR: Negative for palpitations, dyspnea on exertion, orthopnea. RESPIRATORY: Negative for shortness of breath, wheezing, cough, hemoptysis, fever or night sweats. GASTROINTESTINAL: Negative for poor appetite, abdominal pain, heartburn, nausea, vomiting, constipation, or diarrhea. GENITOURINARY: Negative for urgency, frequency, dysuria, nocturia. MUSCULOSKELETAL: Negative for pain, swelling. NEUROLOGIC/PSYCHIATRIC: Negative for anxiety, depression. ALLERGY/IMMUNOLOGIC: Negative for skin rash, bleeding tendency. PHYSICAL EXAMINATION: GENERAL: This is a well-built female, in no apparent distress. VITAL SIGNS: Temperature 98.0, pulse 72, respiratory rate 18, and blood pressure 181/76. HEENT: Atraumatic and normocephalic. Oral mucosa is moist. NECK: Supple. CV: S1 and S2 heard. Rate and rhythm regular. RESPIRATORY: Clear. GI: Abdomen is soft. MUSCULOSKELETAL: 1+ edema. DERMATOLOGIC: No skin rash. NEUROLOGIC: Alert and awake. PSYCHIATRIC: Normal mood and affect. LABORATORY DATA: Hemoglobin is 13.9, potassium is 3.2, BUN is 15, creatinine is 0.9. ASSESSMENT: 1. Resistant hypertension, on multiple medications with recent history of heart block, cautious administration of beta-blockers and clonidine. The patient had a few changes in medication today. Plan is to monitor labs. 2. Hypokalemia with hypertension. Plan is to check a [id number]-ka-rwdxoazmuzf level and also to rule out renal artery stenosis. 3. Edema, controlled. 4. Chronic kidney disease, stage 2, stable. Monitor blood pressure closely. Recheck klkrl-oc-gosfazategy level and also renal artery Doppler. We will follow. Thank you for the consult. Job ID: [id number]
--- NOTE | 2018-07-07 07:21 | PRG ---
DATE OF SERVICE: 07/07/2018 Ms. Small remains in the hospital for blood pressure control. She has been through jerica hole evacuation of her subdural hematoma and neurologically is well. Probably Ms. Small said her blood pressures go up into the 180s and are difficult to control. She is undergoing an evaluation by Nephrology currently. When that evaluation is complete, and her blood pressure is under reasonable control, she can be discharged. Job ID: [id number] MTDD
[2018-07-07 09:02] LABS: Anion Gap 11 mmol/L (10-20); BUN (Urea Nitrogen) 18 mg/dL (9.8-20.1); Calc. Creatinine Clearance 60 mL/min (70-130); Calcium 9.4 mg/dL (7.8-10.44); Carbon Dioxide 28 mmol/L (23-31); Chloride 100 mmol/L (98-107); Estimated GFR-MDRD 68; Glucose 94 mg/dL (80-115); Magnesium 1.4 mg/dL (1.6-2.6); Potassium 3.1 mmol/L (3.5-5.1); Sodium 136 mmol/L (136-145)
[2018-07-07] MEDS: Timolol 0.5% Ophth Soln 5 ml Bottle EA EYE SCH ×2 (09:37→20:36)
[2018-07-07] MEDS: metFORMIN 500 MG TAB PO SCH ×2 (09:38→18:40)
[2018-07-07] MEDS: Polyethylene Glycol 3350 17 GM Packet PO SCH (09:38)
[2018-07-07] MEDS: levETIRAcetam 500 MG TAB PO SCH ×2 (09:38→20:33)
[2018-07-07] MEDS: Amlodipine 10 MG TAB PO SCH (09:39)
[2018-07-07] MEDS: Senokot S 8.6-50 MG TAB PO SCH ×2 (09:39→20:32)
[2018-07-07] MEDS ORDERED: Magnesium Sulfate 4 GM in Sodium Chloride 0.9% 250 ML 250 ML IVPB SCH (10:00)
[2018-07-07] MEDS ORDERED: Potassium Chloride 20 MEQ TAB PO SCH ×2 (10:00→17:00)
--- NOTE | 2018-07-07 10:36 | ULT ---
COMPLETE BILATERAL RENAL ULTRASOUND INCLUDING VASCULAR DUPLEX WITH COLOR AND SPECTRAL DOPPLER IMAGING : HISTORY: Hypertension and renal artery stenosis. FINDINGS: The right kidney measures 10.5 x 5.2 x 5.2 cm. There are two right renal cysts, one approximately 3. 3 x 3.4 cm and the other one approximately 2.7 x 2.9 cm. The left kidney measures 9.6 x 5.0 x 5.6 cm. On vascular duplex with color and spectral Doppler imaging, no significant abnormal focal high veloci ties. Right and left renal artery/aortic ratios are within normal limits. Resistive indices are elevated bilaterally at 0.8 cm. IMPRESSION: 1. Two right renal cysts. No renal hydronephrosis or perinephric process. The bladder was nonvisua lized. 2. Resistive indices are elevated bilaterally. If there is concern for renal artery stenosis, consider follow-up CT angiogram or MR angiogram for ad ditional imaging. POS: OLIVIA
[2018-07-07] MEDS: Spironolactone 25 MG TAB PO SCH ×2 (11:04→11:39)
[2018-07-07] MEDS: Hydrochlorothiazide 25 MG TAB PO SCH ×2 (11:04→11:39)
[2018-07-07] MEDS: Losartan 25 MG TAB PO SCH ×2 (11:04→11:39)
--- NOTE | 2018-07-07 13:30 | PRG ---
DATE OF SERVICE: 07/07/2018 SUBJECTIVE: Ms. Small is a 62-year-old female being seen for acute kidney injury. The patient denies any nausea, vomiting or chest pain. OBJECTIVE: See above. Awake, alert, in no acute distress. GENERAL APPEARANCE AND MENTAL STATUS: Fair. HEAD/NECK: Normocephalic. Atraumatic. EYES: EOMI. No deformity. EARS: Clear. No ulcers. NOSE: Intact. No lesions. MOUTH: Clear. No discharge. THROAT: Clear. No exudate. LUNGS: Clear. No crackles. CARDIAC: S1, S2. No rub. ABDOMEN: Benign. Bowel sounds positive. GENITALIA/RECTUM: Bernstein absent. BACK/EXTREMITIES: Edema 0+. NEUROLOGICAL: Alert and motor intact. SKIN: LYMPHATICS: LABORATORY DATA: Hemoglobin 12.5 and creatinine 0.9. IMPRESSION AND PLAN: Acute kidney injury, improved; hypertension, stable; anemia, stable. I will sign off on this patient. Please reconsult as needed. Job ID: [id number]
[2018-07-07] MEDS ORDERED: hydrALAZINE 25 MG TAB PO PRN (14:15)
[2018-07-07] MEDS ORDERED: hydrALAZINE 25 MG TAB PO SCH (14:30)
[2018-07-07] MEDS ORDERED: Nitroglycerin 2% Ointment 1 INCH/1 GM Packet TOP PRN (17:08)
--- NOTE | 2018-07-07 17:46 | PDOC.PN ---
- Subjective Encounter Start Date: 07/07/18 Encounter Start Time: 10:30 Patient seen and examined for med mngt. No new complaints. No overnight events - Objective Resuscitation Status - Order Detail: 07/04/18 11:08 Resuscitation Status Routine Resuscitation Status: FULL: Full Resuscitation Discussed with: Patient LEONA Reviewed: Yes Vital Signs & Weight: Vital Signs (12 hours) Temp Pulse Resp BP BP BP Pulse Ox 07/07/18 15:36 98.3 F 65 18 151/78 H 100 07/07/18 14:57 65 158/80 H 07/07/18 14:06 61 159/80 H 07/07/18 11:28 98.3 F 59 L 18 161/81 H 99 07/07/18 09:39 66 116/70 07/07/18 09:37 66 07/07/18 08:00 100 07/07/18 07:14 98.7 F 66 16 116/70 100 07/07/18 06:43 100 Weight Weight 147 lb 0.773 oz Most Recent Monitor Data Heart Rate from ECG 56 NIBP 129/70 NIBP BP-Mean 89 Respiration from ECG 18 SpO2 92 I&O: 07/06/18 07/07/18 07/08/18 06:59 06:59 06:59 Intake Total 1308 Output Total 875 Balance 433 Result Diagrams: 07/05/18 12:17 07/07/18 08:26 Additional Labs: Accuchecks 07/07/18 07/07/18 07/06/18 15:37 05:07 22:23 POC Glucose 85 96 104 Laboratory Tests 07/07/18 08:26 Potassium 3.1 L Magnesium 1.4 L Phys Exam - Physical Examination Constitutional: NAD Respiratory: no wheezing, no rhonchi Cardiovascular: RRR, no rub Gastrointestinal: soft, non-tender, positive bowel sounds Musculoskeletal: no edema Neurological: moves all 4 limbs Dx/Plan - Plan DVT proph w/SCDs 1. HTN - better controlled 2. h/o of complete heart block with betablockers 3. Constipation 4. DM2 5. HLD 6. Hypokalemia/Hypomagnesemia 7. CKD 2 8. Anxiety PLAN: Replace Magnesium/Potassium DC Clonidine patch DC Hytrin (Per Nephrology) Cont Aldactone 25 mg daily Cont Losartan/HCTZ/Amlodipine Add Hydralazine 25 mg BID & PRN per Nephrology Renin/Aldosterone sent - Patient to follow up with Dr Carpio Review of Systems - Review of Systems Respiratory: negative: Cough, Dry, Shortness of Breath, Hemoptysis, SOB with Excertion, Pleuritic Pain, Sputum, Wheezing Cardiovascular: negative: chest pain, palpitations, orthopnea, paroxysmal nocturnal dyspnea, edema, light headedness, other - Medications/Allergies Allergies/Adverse Reactions: Allergies Allergy/AdvReac Type Severity Reaction Status Date / Time Beta-Blockers Allergy Verified 07/06/18 12:28 (Beta-Adrenergic Bloc Medications: Current Medications Acetaminophen (Tylenol) 650 mg PO Q4H PRN PRN Reason: Headache/Fever Or Mild Pain Last Admin: 07/06/18 20:17 Dose: 650 mg Acetaminophen (Tylenol) 650 mg TN Q4H PRN PRN Reason: Headache/Fever Or Mild Pain Acetaminophen/Codeine Phosphate (Tylenol #3) 1 tab PO Q4H PRN PRN Reason: Moderate Pain (4-6) Last Admin: 07/07/18 09:45 Dose: 1 tab Acetaminophen/Codeine Phosphate (Tylenol #3) 2 tab PO Q4H PRN PRN Reason: Severe Pain (7-10) Al Hydroxide/Mg Hydroxide (Maalox) 30 ml PO Q6H PRN PRN Reason: Indigestion Alprazolam (Xanax) 0.5 mg PO BID PRN PRN Reason: Anxiety Last Admin: 07/04/18 23:00 Dose: 0.5 mg Amlodipine Besylate (Norvasc) 10 mg PO DAILY [facility] Last Admin: 07/07/18 09:39 Dose: 10 mg Atorvastatin Calcium (Lipitor) 10 mg PO HS [facility] Last Admin: 07/06/18 20:18 Dose: 10 mg Clonidine (Catapres) 0.1 mg PO Q4H PRN PRN Reason: Systolic BP > 160 Last Admin: 07/07/18 03:15 Dose: 0.1 mg Dextrose/Water (Dextrose 50%) 25 gm SLOW IVP PRN PRN PRN Reason: Hypoglycemia Diphenhydramine HCl (Benadryl) 50 mg IVP Q6H PRN PRN Reason: Itching & Insomnia Diphenhydramine HCl (Benadryl) 50 mg PO Q6H PRN PRN Reason: Itching & Insomnia Last Admin: 07/04/18 21:22 Dose: 50 mg Docusate Sodium (Colace) 100 mg PO BIDPRN PRN PRN Reason: Constipation Enalaprilat (Vasotec) 0.625 mg SLOW IVP Q6H PRN PRN Reason: SBP GREATER THAN 160 Glucagon (Glucagon) 1 mg IM PRN PRN PRN Reason: Hypoglycemia Hydralazine HCl (Apresoline) 10 mg SLOW IVP Q4H PRN PRN Reason: SBP Greater Than 180 Hydralazine HCl (Apresoline) 25 mg PO Q6H PRN PRN Reason: SBP GREATER THAN 160 Hydralazine HCl (Apresoline) 25 mg PO BID [facility] Hydrochlorothiazide (Hydrochlorothiazide) 25 mg PO DAILY [facility] Last Admin: 07/07/18 11:39 Dose: 25 mg Dextrose/Water (D5w) 1,000 mls @ 0 mls/hr IV .Q0M PRN PRN Reason: Hypoglycemia Insulin Human Lispro (Humalog) 0 units SC .MILD SLIDING SCALE PRN PRN Reason: Mild Correctional Scale Latanoprost (Xalatan 0.005% Oph Soln) 1 drop EA [facility] Last Admin: 07/06/18 20:22 Dose: 1 drop Levetiracetam (Keppra) 500 mg PO BID [facility] Last Admin: 07/07/18 09:38 Dose: 500 mg Losartan Potassium (Cozaar) 100 mg PO DAILY [facility] Last Admin: 07/07/18 11:39 Dose: 100 mg Metformin HCl (Glucophage) 1,000 mg PO BID[facility] Last Admin: 07/07/18 09:38 Dose: 1,000 mg Morphine Sulfate (Morphine) 2 mg SLOW IVP Q1H PRN PRN Reason: Moderate breakthrough pain Morphine Sulfate (Morphine) 4 mg SLOW IVP Q1H PRN PRN Reason: Severe Breakthrough Pain Nitroglycerin (Nitro-Bid 2% Ointment) 0.5 inch TOP Q8HR PRN PRN Reason: SBP Greater Than 180 Ondansetron HCl (Zofran) 4 mg IVP Q8H PRN PRN Reason: Nausea/Vomiting Pantoprazole Sodium (Protonix) 40 mg PO DAILY [facility] Last Admin: 07/07/18 09:38 Dose: 40 mg Polyethylene Glycol (Miralax) 17 gm PO DAILY [facility] Last Admin: 07/07/18 09:38 Dose: 17 gm Promethazine HCl (Phenergan) 12.5 mg PO Q4H PRN PRN Reason: Nausea/Vomiting Promethazine HCl (Phenergan) 12.5 mg IM Q4H PRN PRN Reason: Nausea/Vomiting Senna/Docusate Sodium (Senokot S) 2 tab PO BID [facility] Last Admin: 07/07/18 09:39 Dose: 2 tab Sodium Chloride (Flush - Normal Saline) 10 ml IVF PRN PRN PRN Reason: Saline Flush Spironolactone (Aldactone) 25 mg PO QAM-WM [facility] Last Admin: 07/07/18 11:39 Dose: 25 mg Throat Lozenges (Cepastat Lozenges) 1 anthony PO Q1H PRN PRN Reason: Sore Throat Last Admin: 07/04/18 01:12 Dose: 1 anthony Timolol Maleate (Timoptic 0.5% [facility] Soln) 1 drop EA EYE BID [facility] Last Admin: 07/07/18 09:37 Dose: 1 drop Tramadol HCl (Ultram) 50 mg PO Q4H PRN PRN Reason: Mild Pain (1-3) Last Admin: 07/04/18 01:07 Dose: 50 mg Tramadol HCl (Ultram) 100 mg PO Q4H PRN PRN Reason: Moderate Pain (4-6)
[2018-07-07] MEDS: hydrALAZINE 25 MG TAB PO SCH (20:33)
[2018-07-07] MEDS: Atorvastatin Calcium 10 MG TAB PO SCH (20:33)
[2018-07-07] MEDS: Latanoprost 0.005% Ophth Soln 2.5 ml Bottle EA EYE SCH (20:35)
[2018-07-08] MEDS: cloNIDine 0.1 MG TAB PO PRN (04:42)
--- NOTE | 2018-07-08 06:46 | PRG ---
DATE OF SERVICE: 07/08/2018 Ms. Small is recovering from her subdural hematoma and we have been waiting for blood pressure to be controlled on oral pills, so she can be discharged from the hospital and not returned. She has been evaluated by Nephrology. Changes have been made to her medications. This morning, Ms. Small is feeling well. She has no new neurological deficit. Once her blood pressure is in reasonable range, which I think it has been overnight, she can be discharged home and hopefully that can be today. Job ID: [id number] MTDD
[2018-07-08] MEDS: Polyethylene Glycol 3350 17 GM Packet PO SCH (08:02)
[2018-07-08] MEDS: Senokot S 8.6-50 MG TAB PO SCH (08:03)
[2018-07-08] MEDS: hydrALAZINE 25 MG TAB PO SCH (08:04)
[2018-07-08] MEDS: Spironolactone 25 MG TAB PO SCH (08:04)
[2018-07-08] MEDS: Losartan 25 MG TAB PO SCH (08:04)
[2018-07-08] MEDS: metFORMIN 500 MG TAB PO SCH ×2 (08:04→17:04)
[2018-07-08] MEDS: Hydrochlorothiazide 25 MG TAB PO SCH (08:04)
[2018-07-08] MEDS: Amlodipine 10 MG TAB PO SCH (08:05)
[2018-07-08] MEDS: levETIRAcetam 500 MG TAB PO SCH (08:05)
[2018-07-08] MEDS: Timolol 0.5% Ophth Soln 5 ml Bottle EA EYE SCH (08:06)
[2018-07-08 09:36] LABS: Magnesium 2.2 mg/dL (1.6-2.6); Potassium 3.8 mmol/L (3.5-5.1)
[2018-07-08 12:58] VITALS: BP 137/81; TEMP 98
[2018-07-08] MEDS ORDERED: hydrALAZINE 25 MG TAB PO SCH (14:00)
== END 2018-07-08 17:04 | disposition home or self-care (01) | DRG 25 ==
LOC: ERS 12:13 → CCU 15:15 → SJJU 07-05 14:08
PROVIDERS: ADMIT Neurological Surgery; ATTEND Neurological Surgery
PROC: 00C40ZZ Extirpation of Matter from Intracranial Subdural Space, Open Approach (ICD-10-PCS; principal; 2018-07-03)
PROC: 009600Z Drainage of Cerebral Ventricle with Drainage Device, Open Approach (ICD-10-PCS; 2018-07-03)
DX: I62.02 Nontraumatic subacute subdural hemorrhage (principal); G93.5 Compression of brain; N17.9 Acute kidney failure, unspecified; I62.03 Nontraumatic chronic subdural hemorrhage; E78.5 Hyperlipidemia, unspecified; R29.810 Facial weakness; D64.9 Anemia, unspecified; E87.6 Hypokalemia; H40.9 Unspecified glaucoma; E11.22 Type 2 diabetes mellitus with diabetic chronic kidney disease; I12.9 Hypertensive chronic kidney disease with stage 1 through stage 4 chronic kidney disease, or unspecified chronic kidney disease; N18.2 Chronic kidney disease, stage 2 (mild); K59.00 Constipation, unspecified; E83.42 Hypomagnesemia; F41.9 Anxiety disorder, unspecified; F17.210 Nicotine dependence, cigarettes, uncomplicated; Z79.84 Long term (current) use of oral hypoglycemic drugs; Z79.82 Long term (current) use of aspirin; Z79.899 Other long term (current) drug therapy; Z88.8 Allergy status to other drugs, medicaments and biological substances; Z91.81 History of falling
CPT/HCPCS: 36415; 36416; 70450; 76700; 76770; 80048; 80053; 80306; 81003; 81015; 82088; 83735; 84132; 84244; 84484; 85025; 85610; 85730; 93005; 94760; 96365; 96375; J0360; J1100; J1953; J2001; J2405; J2704; J3010; J3475; J3490; J7050

== ENCOUNTER 2018-07-31 09:05 | Outpatient (CLI) | payer MEDICARE ==
--- NOTE | 2018-07-31 09:33 | CT ---
CT BRAIN: History: Follow up subdural hematoma. Technique: Noncontrast enhanced CT images of the brain was obtained on 07-31-18 Comparison: 07-04-18 FINDINGS: CT images of the brain demonstrate previous right frontal jerica hole with previous subdural hematoma d rain. The drain has been removed at this time. No evidence of residual subdural hematoma or collectio n is present. No evidence of acute or old hemorrhage is seen. The brain demonstrates no significant m idline shift. No evidence of intraparenchymal hemorrhage is seen. No other acute abnormality seen. IMPRESSION: Previously noted right subdural collection is no longer present. The surgical drain has been removed. Right frontal surgical jerica holes visualized. POS: [facility]
== END 2018-07-31 09:06 | disposition home or self-care (01) ==
LOC: TBSIIMAG 09:05
PROVIDERS: ATTEND Neurological Surgery
DX: I62.03 Nontraumatic chronic subdural hemorrhage (principal)
CPT/HCPCS: 70450